=== PATIENT | male | born 1945 | race Caucasian/White ===

== ENCOUNTER 2020-06-22 08:31 | Outpatient (REF) | payer MEDICARE, OTHER, SELFPAY ==
[2020-06-22 10:04] LABS: MANUAL DIFF FLAG NO
[2020-06-22 10:19] LABS: Basophils Percent Auto 0.4 % (0-2); Eosinophils Absolute Auto 0.1 X10*3/uL (0.0-0.4); Eosinophils Percent Auto 1.3 % (0-4); Hematocrit 45.7 % (42-52); Hemoglobin 14.7 g/dl (14.0-18.0); Imm Gran Abs Auto 0.02 X10*3/uL (0.00-0.03); Imm Gran Pct Auto 0.3 % (0.0-0.4); Lymphocytes Absolute Auto 2.7 X10*3/uL (1.2-4.9); Lymphocytes Percent Auto 34.1 % (20-40); Mean Corpuscular HGB Conc 32.2 g/dl (31.0-36.0); Mean Corpuscular Hemoglobin 28.4 pg (27.0-33.0); Mean Corpuscular Volume 88.2 fL (80-98); Mean Platelet Volume 9.6 fL (9.4-12.4); Monocytes Absolute Auto 0.6 X10*3/uL (0.1-1.2); Monocytes Percent Auto 7.3 % (2-11); Neutrophils Absolute Auto 4.5 X10*3/uL (2.0-8.3); Neutrophils Percent Auto 56.6 % (45-73); Platelet Count 254 X10*3/uL (160-400); Red Blood Count 5.18 X10*6/uL (4.60-5.80); Red Cell Distribution Width 13.1 % (11.0-16.0); White Blood Count 7.9 X10*3/uL (4.8-10.8)
[2020-06-22 10:35] LABS: Glucose Urine UA NEG (NEG); Leukocyte Esterase Urine NEG (NEG); Nitrite Urine NEG (NEG); PH 5.5 (5.0-8.0); Specific Gravity - Urine >= 1.030 (1.005-1.025); Urine Blood 2+ (NEG); Urine Ketones NEG (NEG); Urine Protein NEG (NEG-TRACE)
[2020-06-22 10:36] LABS: Alanine Aminotransferase 43 U/L (0-40); Albumin Level 4.3 g/dL (3.5-5.0); Alkaline Phosphatase 119 U/L (39-117); Anion Gap 13 (12-20); Aspartate Amino Transferase 29 U/L (5-37); Bilirubin Total 0.3 mg/dL (0.0-1.0); Blood Urea Nitrogen 13 mg/dL (9-16); Calcium 8.6 mg/dL (8.4-10.2); Carbon Dioxide 25 mmol/L (22-29); Chloride 107 mmol/L (96-108); Estimated Glomerular Filt Rate > 60; Glucose Fasting 115 mg/dL (60-99); Potassium 4.2 mmol/l (3.3-5.1); Sodium 141 mmol/L (135-145); Total Protein 7.1 g/dL (6.5-8.0)
[2020-06-22 10:38] LABS: Triglycerides 131 mg/dL
[2020-06-22 10:40] LABS: Appearance Urine CLEAR; Color Urine YELLOW
[2020-06-22 10:42] LABS: Cholesterol 157 mg/dL; HDL Cholesterol 50 mg/dL; LDL Cholesterol Calculated 81 mg/dl
[2020-06-22 10:54] LABS: Mucus Urine 1+ /LPF; Squamous Epithelial Cell Urine TRACE /LPF; WBC Urine 0 /HPF (0-4)
[2020-06-22 10:55] LABS: TSH reflex Free T4 2.84 mIU/mL (0.32-4.0)
== END 2020-06-22 08:32 | disposition home or self-care (01) ==
LOC: HO.10HDL 08:31
PROVIDERS: Absent Provider Internal Medicine Interventional Cardiology; PCP Internal Medicine; Visit Provider Internal Medicine
DX: E78.5 Hyperlipidemia, unspecified (principal); R73.01 Impaired fasting glucose; I25.10 Atherosclerotic heart disease of native coronary artery without angina pectoris; N40.0 Benign prostatic hyperplasia without lower urinary tract symptoms; E66.3 Overweight
CPT/HCPCS: 36415; 80053; 80061; 81001; 84443; 85025

== ENCOUNTER 2020-11-10 08:11 | Outpatient (REF) | payer MEDICARE, OTHER, SELFPAY ==
[2020-11-10 11:51] LABS: PSA,Total (Free>4and<10) 38.21 ng/mL (0.00-4.00)
== END 2020-11-10 08:12 | disposition home or self-care (01) ==
LOC: HO.10HDL 08:11
PROVIDERS: Visit Provider Urology
DX: Z12.5 Encounter for screening for malignant neoplasm of prostate (principal); N13.8 Other obstructive and reflux uropathy; N40.1 Benign prostatic hyperplasia with lower urinary tract symptoms
CPT/HCPCS: 36415; 84153

== ENCOUNTER → 2020-11-16 13:14 | Outpatient (BNVA) | payer MEDICARE, OTHER, SELFPAY | PROVIDERS: PCP Internal Medicine; Visit Provider Urology | DX: N40.0 Benign prostatic hyperplasia without lower urinary tract symptoms (principal); R97.20 Elevated prostate specific antigen [PSA]; Z90.79 Acquired absence of other genital organ(s) | CPT/HCPCS: 81002; 99212 ==

== ENCOUNTER 2020-12-21 09:02 | Outpatient (REF) | payer MEDICARE, OTHER, SELFPAY ==
[2020-12-21 11:24] LABS: MANUAL DIFF FLAG NO
[2020-12-21 11:31] LABS: Glucose Urine UA NEG (NEG); Leukocyte Esterase Urine NEG (NEG); Nitrite Urine NEG (NEG); Specific Gravity - Urine >= 1.030 (1.005-1.025); Urine Blood TRACE (NEG); Urine Ketones NEG (NEG); Urine Protein 1+ MG/DL (NEG-TRACE)
[2020-12-21 11:33] LABS: Basophils Percent Auto 0.4 % (0-2); Eosinophils Absolute Auto 0.1 X10*3/uL (0.0-0.4); Eosinophils Percent Auto 0.9 % (0-4); Hematocrit 46.1 % (42-52); Hemoglobin 14.6 g/dl (14.0-18.0); Imm Gran Abs Auto 0.01 X10*3/uL (0.00-0.03); Imm Gran Pct Auto 0.1 % (0.0-0.4); Lymphocytes Absolute Auto 2.3 X10*3/uL (1.2-4.9); Lymphocytes Percent Auto 30.7 % (20-40); Mean Corpuscular HGB Conc 31.7 g/dl (31.0-36.0); Mean Corpuscular Hemoglobin 28.7 pg (27.0-33.0); Mean Corpuscular Volume 90.6 fL (80-98); Mean Platelet Volume 10.1 fL (9.4-12.4); Monocytes Absolute Auto 0.6 X10*3/uL (0.1-1.2); Monocytes Percent Auto 7.9 % (2-11); Neutrophils Absolute Auto 4.6 X10*3/uL (2.0-8.3); Platelet Count 256 X10*3/uL (160-400); Red Blood Count 5.09 X10*6/uL (4.60-5.80); Red Cell Distribution Width 12.6 % (11.0-16.0); White Blood Count 7.6 X10*3/uL (4.8-10.8)
[2020-12-21 11:34] LABS: Appearance Urine CLOUDY; Color Urine YELLOW
[2020-12-21 11:39] LABS: Estimated Average Glucose 114 mg/dL; Hemoglobin A1c % 5.6 %
[2020-12-21 12:10] LABS: TSH reflex Free T4 1.44 uIU/mL (0.32-4.0)
[2020-12-21 12:12] LABS: Alanine Aminotransferase 35 U/L (0-40); Albumin Level 4.4 g/dL (3.5-5.0); Alkaline Phosphatase 127 U/L (39-117); Anion Gap 14 (12-20); Aspartate Amino Transferase 30 U/L (5-37); Bilirubin Total 0.3 mg/dL (0.0-1.0); Blood Urea Nitrogen 12 mg/dL (9-16); Calcium 9.4 mg/dL (8.4-10.2); Carbon Dioxide 24 mmol/L (22-29); Chloride 107 mmol/L (96-108); Cholesterol 151 mg/dL; Estimated Glomerular Filt Rate > 60; Glucose Fasting 110 mg/dL (60-99); HDL Cholesterol 47 mg/dL; LDL Cholesterol Calculated 83 mg/dl; Potassium 4.3 mmol/L (3.3-5.1); RBC Urine 0-2 /HPF (0); Sodium 141 mmol/L (135-145); Triglycerides 108 mg/dL; WBC Urine 0-2 /HPF (0-4)
== END 2020-12-21 09:03 | disposition home or self-care (01) ==
LOC: HO.HMGCLDS 09:02
PROVIDERS: PCP Internal Medicine; Visit Provider Internal Medicine
DX: I25.10 Atherosclerotic heart disease of native coronary artery without angina pectoris (principal); E78.00 Pure hypercholesterolemia, unspecified; R73.01 Impaired fasting glucose; E66.3 Overweight
CPT/HCPCS: 36415; 80053; 80061; 81001; 83036; 84443; 85025

== ENCOUNTER → 2021-06-22 08:29 | Outpatient (BNVA) | payer MEDICARE, OTHER, SELFPAY | PROVIDERS: PCP Internal Medicine; Visit Provider Urology | DX: Z13.89 Encounter for screening for other disorder (principal) | CPT/HCPCS: Q3014 ==

== ENCOUNTER 2021-12-15 09:02 | Outpatient (REF) | payer MEDICARE, OTHER, SELFPAY ==
[2021-12-15 12:23] LABS: PSA,Total (Free>4and<10) 39.36 ng/mL (0.00-4.00)
== END 2021-12-15 09:03 | disposition home or self-care (01) ==
LOC: HO.HMGCLDS 09:02
PROVIDERS: PCP Internal Medicine; Visit Provider Urology
DX: N40.1 Benign prostatic hyperplasia with lower urinary tract symptoms (principal); N13.8 Other obstructive and reflux uropathy; R97.20 Elevated prostate specific antigen [PSA]; Z12.5 Encounter for screening for malignant neoplasm of prostate
CPT/HCPCS: 36415; 84153

== ENCOUNTER → 2021-12-26 11:18 | Outpatient (BNVA) | payer MEDICARE, OTHER, SELFPAY | PROVIDERS: PCP Internal Medicine; Visit Provider Urology | DX: R97.20 Elevated prostate specific antigen [PSA] (principal); N32.0 Bladder-neck obstruction | CPT/HCPCS: 99212 ==

== ENCOUNTER → 2022-02-15 08:53 | Outpatient (BNVA) | payer MEDICARE, OTHER, SELFPAY | PROVIDERS: PCP Internal Medicine; Visit Provider Urology | DX: N32.0 Bladder-neck obstruction (principal); R97.20 Elevated prostate specific antigen [PSA]; Z90.79 Acquired absence of other genital organ(s) | CPT/HCPCS: 51798; 99212 ==

== ENCOUNTER 2022-04-10 09:08 | Outpatient (REF) | payer MEDICARE, OTHER, SELFPAY ==
[2022-04-10 10:49] LABS: MANUAL DIFF FLAG NO
[2022-04-10 10:54] LABS: Basophils Percent Auto 0.5 % (0-2); Eosinophils Absolute Auto 0.1 X10*3/uL (0.0-0.4); Eosinophils Percent Auto 1.1 % (0-4); Hemoglobin 15.1 g/dl (14.0-18.0); Imm Gran Abs Auto 0.02 X10*3/uL (0.00-0.03); Imm Gran Pct Auto 0.3 % (0.0-0.4); Lymphocytes Absolute Auto 2.1 X10*3/uL (1.2-4.9); Mean Corpuscular HGB Conc 32.8 g/dl (31.0-36.0); Mean Corpuscular Volume 88.3 fL (80.0-98.0); Mean Platelet Volume 9.9 fL (9.4-12.4); Monocytes Absolute Auto 0.5 X10*3/uL (0.1-1.2); Neutrophils Absolute Auto 3.5 x10*3/uL (2.0-8.3); Neutrophils Percent Auto 56.1 % (45-73); Platelet Count 231 X10*3/uL (160-400); Red Blood Count 5.21 X10*6/uL (4.60-5.80); Red Cell Distribution Width 12.6 % (11.0-16.0); White Blood Count 6.3 X10*3/uL (4.8-10.8)
[2022-04-10 11:00] LABS: Appearance Urine Clear; Color Urine Yellow; Glucose Urine UA Negative (Negative); Leukocyte Esterase Urine Negative (Negative); Nitrite Urine Negative (Negative); Urine Blood Negative (Negative); Urine Ketones Negative (Negative); Urine Protein Trace mg/dL (Neg-Trace)
[2022-04-10 11:03] LABS: Estimated Average Glucose 114 mg/dL; Hemoglobin A1C 149.6728 umol/L; Hemoglobin A1c % 5.6 %
[2022-04-10 11:13] LABS: Alanine Aminotransferase 31 U/L (0-40); Albumin Level 4.6 g/dL (3.5-5.0); Alkaline Phosphatase 103 U/L (39-117); Anion Gap 16 (12-20); Aspartate Amino Transferase 23 U/L (5-37); Bilirubin Total 0.6 mg/dL (0.0-1.0); Blood Urea Nitrogen 14 mg/dL (9-16); Calcium 9.6 mg/dL (8.4-10.2); Carbon Dioxide 27 mmol/L (22-29); Chloride 103 mmol/L (96-108); Cholesterol 163 mg/dL; Estimated Glomerular Filt Rate > 60; Glucose Fasting 108 mg/dL (60-99); HDL Cholesterol 56 mg/dL; LDL Cholesterol Calculated 88 mg/dl; Sodium 141 mmol/L (135-145); Total Protein 7.3 g/dL (6.5-8.0); Triglycerides 98 mg/dL
[2022-04-10 11:26] LABS: TSH reflex Free T4 1.81 uIU/mL (0.32-4.0); Vitamin D 25-OH Total 25.4 ng/mL (>30)
== END 2022-04-10 09:09 | disposition home or self-care (01) ==
LOC: HO.10HDL 09:08
PROVIDERS: Visit Provider Internal Medicine
DX: R73.01 Impaired fasting glucose (principal); E55.9 Vitamin D deficiency, unspecified; I10 Essential (primary) hypertension; E78.00 Pure hypercholesterolemia, unspecified
CPT/HCPCS: 36415; 80053; 80061; 81003; 82306; 83036; 84443; 85025

== ENCOUNTER 2022-10-24 09:16 | Outpatient (REF) | payer MEDICARE, OTHER, SELFPAY ==
[2022-10-24 12:15] LABS: PSA,Total (Free>4and<10) 43.29 ng/mL (0.00-4.00)
== END 2022-10-24 09:17 | disposition home or self-care (01) ==
LOC: HO.10HDL 09:16
PROVIDERS: Visit Provider Urology
DX: N40.1 Benign prostatic hyperplasia with lower urinary tract symptoms (principal); N13.8 Other obstructive and reflux uropathy; R97.20 Elevated prostate specific antigen [PSA]; Z12.5 Encounter for screening for malignant neoplasm of prostate
CPT/HCPCS: 36415; 84153

== ENCOUNTER → 2022-11-01 10:39 | Outpatient (BNVA) | payer MEDICARE, OTHER, SELFPAY | PROVIDERS: PCP Internal Medicine; Visit Provider Urology | DX: N32.0 Bladder-neck obstruction (principal); N40.1 Benign prostatic hyperplasia with lower urinary tract symptoms; N13.8 Other obstructive and reflux uropathy; R97.20 Elevated prostate specific antigen [PSA]; Z79.82 Long term (current) use of aspirin; Z79.899 Other long term (current) drug therapy | CPT/HCPCS: 99212 ==

== ENCOUNTER 2022-11-05 11:14 | Outpatient (REF) | payer MEDICARE, OTHER, SELFPAY ==
[2022-11-05 14:13] LABS: Appearance Urine Turbid; Color Urine Yellow; Glucose Urine UA Negative (Negative); Leukocyte Esterase Urine Negative (Negative); Nitrite Urine Negative (Negative); PH 5.5 (5.0-9.0); Specific Gravity - Urine 1.025 (1.005-1.025); Urine Blood Negative (Negative); Urine Ketones Trace mg/dL (Negative); Urine Protein Trace mg/dL (Neg-Trace)
[2022-11-05 14:17] LABS: MANUAL DIFF FLAG NO
[2022-11-05 14:31] LABS: Basophils Percent Auto 0.5 % (0-2); Eosinophils Absolute Auto 0.1 X10*3/uL (0.0-0.4); Eosinophils Percent Auto 0.7 % (0-4); Hematocrit 47.1 % (42.0-52.0); Hemoglobin 15.1 g/dl (14.0-18.0); Imm Gran Abs Auto 0.03 X10*3/uL (0.00-0.03); Imm Gran Pct Auto 0.4 % (0.0-0.4); Lymphocytes Absolute Auto 2.3 X10*3/uL (1.2-4.9); Lymphocytes Percent Auto 29.9 % (20-40); Mean Corpuscular HGB Conc 32.1 g/dl (31.0-36.0); Mean Corpuscular Volume 90.4 fL (80.0-98.0); Mean Platelet Volume 9.7 fL (9.4-12.4); Monocytes Absolute Auto 0.6 X10*3/uL (0.1-1.2); Neutrophils Absolute Auto 4.6 x10*3/uL (2.0-8.3); Neutrophils Percent Auto 60.5 % (45-73); Platelet Count 255 X10*3/uL (160-400); Red Blood Count 5.21 X10*6/uL (4.60-5.80); White Blood Count 7.6 X10*3/uL (4.8-10.8)
[2022-11-05 15:14] LABS: Alanine Aminotransferase 35 U/L (0-40); Albumin Level 4.4 g/dL (3.5-5.0); Alkaline Phosphatase 103 U/L (39-117); Anion Gap 16 (12-20); Aspartate Amino Transferase 30 U/L (5-37); Bilirubin Total 0.7 mg/dL (0.0-1.0); Blood Urea Nitrogen 13 mg/dL (9-16); Calcium 9.3 mg/dL (8.4-10.2); Carbon Dioxide 24 mmol/L (22-29); Chloride 104 mmol/L (96-108); Cholesterol 172 mg/dL; Estimated Glomerular Filt Rate > 60; Glucose Fasting 95 mg/dL (60-99); HDL Cholesterol 56 mg/dL; LDL Cholesterol Calculated 97 mg/dl; Potassium 5.1 mmol/L (3.3-5.1); Sodium 139 mmol/L (135-145); Total Protein 7.2 g/dL (6.5-8.0); Triglycerides 98 mg/dL
[2022-11-05 15:26] LABS: TSH reflex Free T4 1.98 uIU/mL (0.32-4.0); Vitamin D 25-OH Total 41.9 ng/mL (>30)
== END 2022-11-05 11:15 | disposition home or self-care (01) ==
LOC: HO.10HDL 11:14
PROVIDERS: Visit Provider Internal Medicine
DX: E55.9 Vitamin D deficiency, unspecified (principal); R30.0 Dysuria; E78.00 Pure hypercholesterolemia, unspecified; I10 Essential (primary) hypertension
CPT/HCPCS: 36415; 80053; 80061; 81003; 82306; 84443; 85025

== ENCOUNTER 2023-04-26 08:06 | Outpatient (REF) | payer MEDICARE, OTHER, SELFPAY ==
[2023-04-26 11:47] LABS: Appearance Urine Clear; Color Urine Yellow; Glucose Urine UA Negative (Negative); Leukocyte Esterase Urine Negative (Negative); Nitrite Urine Negative (Negative); Urine Blood Negative (Negative); Urine Ketones Negative (Negative); Urine Protein Negative (Neg-Trace)
[2023-04-26 11:54] LABS: MANUAL DIFF FLAG NO
[2023-04-26 12:04] LABS: Basophils Percent Auto 0.5 % (0-2); Eosinophils Absolute Auto 0.1 X10*3/uL (0.0-0.4); Eosinophils Percent Auto 1.4 % (0-4); Imm Gran Abs Auto 0.02 X10*3/uL (0.00-0.03); Imm Gran Pct Auto 0.3 % (0.0-0.4); Lymphocytes Absolute Auto 2.4 X10*3/uL (1.2-4.9); Lymphocytes Percent Auto 39.3 % (20-40); Mean Corpuscular HGB Conc 31.9 g/dl (31.0-36.0); Mean Corpuscular Hemoglobin 28.4 pg (27.0-33.0); Mean Corpuscular Volume 88.8 fL (80.0-98.0); Mean Platelet Volume 9.9 fL (9.4-12.4); Monocytes Absolute Auto 0.5 X10*3/uL (0.1-1.2); Monocytes Percent Auto 8.7 % (2-11); Neutrophils Absolute Auto 3.1 x10*3/uL (2.0-8.3); Neutrophils Percent Auto 49.8 % (45-73); Platelet Count 272 X10*3/uL (160-400); Red Blood Count 5.29 X10*6/uL (4.60-5.80); Red Cell Distribution Width 13.1 % (11.0-16.0); White Blood Count 6.2 X10*3/uL (4.8-10.8)
[2023-04-26 13:23] LABS: Prostate Specific Antigen 48.99 ng/mL (<0.05-4.0)
[2023-04-26 13:35] LABS: Alanine Aminotransferase 34 U/L (0-40); Albumin Level 4.4 g/dL (3.5-5.0); Alkaline Phosphatase 98 U/L (39-117); Anion Gap 18 (12-20); Aspartate Amino Transferase 26 U/L (5-37); Bilirubin Total 0.6 mg/dL (0.0-1.0); Blood Urea Nitrogen 12 mg/dL (9-16); Calcium 9.9 mg/dL (8.4-10.2); Carbon Dioxide 24 mmol/L (22-29); Chloride 103 mmol/L (96-108); Cholesterol 166 mg/dL (<200); Estimated Glomerular Filt Rate > 60; Glucose Fasting 88 mg/dL (60-99); HDL Cholesterol 47 mg/dL (>40); LDL Cholesterol Calculated 90 mg/dL (<100); Potassium 3.8 mmol/L (3.3-5.1); Sodium 141 mmol/L (135-145); Total Protein 7.6 g/dL (6.5-8.0); Triglycerides 148 mg/dL (<150); Vitamin D 25-OH Total 37.7 ng/mL (>30)
== END 2023-04-26 08:07 | disposition home or self-care (01) ==
LOC: HO.HMGCLDS 08:06
PROVIDERS: Absent Provider Urology; PCP Internal Medicine; Visit Provider Internal Medicine
DX: I10 Essential (primary) hypertension (principal); E78.00 Pure hypercholesterolemia, unspecified; R30.0 Dysuria; E55.9 Vitamin D deficiency, unspecified; R97.20 Elevated prostate specific antigen [PSA]; Z12.5 Encounter for screening for malignant neoplasm of prostate
CPT/HCPCS: 36415; 80053; 80061; 81003; 82306; 84153; 84443; 85025

== ENCOUNTER 2023-05-03 09:39 | Outpatient (AMB) | payer MEDICARE, OTHER, SELFPAY ==
--- NOTE | 2023-05-03 09:39 | A.OFFVIS_ITS ---
Intake Intake Visit Reasons: 6M PSA(set) Intake Note: Patient is Present for Telephone Follow Up PSA Urology Med: Finasteride Antibiotic Allergy: None Blood Thinner: Aspirin Pharamcy: well care Allergies No Known Allergies Allergy (Verified 05/03/23 09:40) Medication List - Last Reconciled 05/03/23 by Cesar Murphy MD amlodipine 2.5 mg PO DAILY aspirin 81 mg PO DAILY atenolol 50 mg PO DAILY atorvastatin 40 mg PO BEDTIME 90 days coenzyme Q10 300 mg PO DAILY docusate sodium 100 mg PO DAILY PRN ezetimibe (Zetia) 10 mg PO DAILY 90 days finasteride 5 mg PO DAILY 90 days meloxicam 15 mg PO DAILY metronidazole 0.75% appl topical nitroglycerin 0.4 mg sublingual Q5M PRN HPI HPI Comments History of Present Illness Details Jayesh is a pleasant male. He is a patient of Dr. Childers. He is seen for the following urologic issues. 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 110 g pro state. 1 cm equivocal posterolateral area. No areas of moderate or high suspicion Understands the risks and benefits with potential delay in diagnosis prostate cancer Lower urinary tract symptoms Prior laser to the prostate Has very large prostate on RUSS PSA surveillance [facility] Medical History Obesity (BMI 30-39.9) Benign essential hypertension Overweight (BMI 25.0-29.9) Benign prostatic hyperplasia Impaired fasting glucose Pure hypercholesterolemia Coronary artery disease Surgical History Presence of bare metal stent in right coronary artery S/P transurethral resection of prostate History of inguinal hernia repair Family History Father CVD (cardiovascular disease) Myocardial infarction Mother Myocardial infarction Sister Myocardial infarction Sister Cancer Social History Housing: House Alcohol intake: current Alcohol intake frequency: 0-2 drinks per day Patient Tobacco Use Status: Former Tobacco user (1996) e-Cigarette/Vaping Use: Never Used Second Hand Smoke Exposure: No service: No Current occupational status: retired Cognitive needs: No Hearing needs: Yes (hearing aide) Vision needs: Yes (glasse) Review of Systems Const All systems reviewed & are unremarkable except as noted in HPI and below Reports no additional complaints Resp Reports no additional complaints GI Reports no additional complaints Reports as per HPI Musc Reports no additional complaints Physical Exam Telemedicine evaluation Appropriate responses Regular breathing rate and rhythm HEENT Head: Yes normal to inspection Ears: hearing grossly normal bilaterally Eyes General: appearance normal, both eyes and all related structures Neck Neck: Yes normal visual inspection Chest Chest palpation & inspection: normal inspection of the chest Resp Effort & Inspection: normal respiratory effort and able to speak in complete sentences Assessment & Plan Assessment & Plan (1) Bladder outlet obstruction: Comment: 2008 prostate procedure vaportrode Code(s): N32.0 - Bladder-neck obstruction (2) Elevated PSA: Code(s): R97.20 - Elevated prostate specific antigen [PSA] Plan Six month follow-up prostate MRI Orders: Orders Prostate Specific Antigen 04/26/23 R97.20 - Elevated prostate specific antigen [PSA] Creatinine 6 Months R97.20 - Elevated prostate specific antigen [PSA] Blood Urea Nitrogen 6 Months R97.20 - Elevated prostate specific antigen [PSA] MR pelvis wo/w con 6 Months R97.20 - Elevated prostate specific antigen [PSA] PSA,Total (Free>4and<10) 6 Months R97.20 - Elevated prostate specific antigen [PSA] Patient Instructions: Imaging studies, laboratory and physical exam results were discussed and reviewed in detail. No major barriers to patient understanding were identified. An opportunity to ask questions regarding the treatment plan was provided. All questions were answered. The patient expressed understanding and agreement with the above treatment plan. The patient is aware they should contact our office by phone for worsening of their current condition or the appearance of new urologic symptoms. Compliance is encouraged with any medications and followup testing that is ordered. It is a privilege to participate in the urologic care of your patient. If you have any questions or concerns regarding treatment for the above conditions, or other urologic issues, please do not hesitate to contact me. The office telephone contact is [phone]. This note is constructed using voice recognition software. While every effort has been made to ensure accuracy endoscopy registered nurse errors may have been included. Yours sincerely, Dr Cesar Murphy MD, [facility] - Urology Providers of Expert, Compassionate Care for the Genitourinary System Telehealth Telehealth Location of provider rendering services: practice address Location of patient: address on file Patient Identification confirmed using: Name, : Yes Telehealth method: voice only Patient verbally consented to treatment: Yes Patient verbally consented to billing insurance company: Yes Patient informed of any privacy concerns related to visit: Yes Coding Level of Care Code Tele Est Pt Level 3 (99055) Diagnoses Bladder outlet obstruction N32.0 Elevated PSA R97.20
== END 2023-05-03 10:29 | disposition home or self-care (01) ==
LOC: HO.HUSH 09:39
PROVIDERS: PCP Internal Medicine; Visit Provider Urology
DX: N32.0 Bladder-neck obstruction (principal); R97.20 Elevated prostate specific antigen [PSA]
CPT/HCPCS: 99442

== ENCOUNTER → 2023-05-03 09:39 | Outpatient (BNVA) | payer MEDICARE, OTHER, SELFPAY | PROVIDERS: PCP Internal Medicine; Visit Provider Urology | DX: R97.20 Elevated prostate specific antigen [PSA] (principal) ==

== ENCOUNTER 2023-05-27 13:21 | Outpatient (AMB) | payer MEDICARE, OTHER, SELFPAY ==
[2023-05-27 13:25] VITALS: BP 128/72; PULSE 56; O2SAT 96; BMI 30.4
--- NOTE | 2023-05-27 13:25 | MHC.PC.OV ---
Vital Signs 05/27/23 13:25 Height 5 ft 5 in Weight 182 lb 8 oz BMI 30.4 BP 128/72 Blood Pressure Location Lt brachial Position Sitting Pulse 56 Pulse Source Pulse Oximeter Pulse Oximetry (%) 96 Oxygen Delivery Method Room Air Intake Visit Reasons: hyperlipidemia, HTN Assistant Commissioner Required: No Accompanied by: Self / Same As Patient Allergies No Known Allergies Allergy (Verified 05/27/23 14:03) Medication List - Last Reconciled 05/27/23 by Gómez Childers MD amlodipine 2.5 mg PO DAILY aspirin 81 mg PO DAILY atenolol 50 mg PO DAILY atorvastatin 40 mg PO BEDTIME 90 days coenzyme Q10 300 mg PO DAILY docusate sodium 100 mg PO DAILY PRN ezetimibe (Zetia) 10 mg PO DAILY 90 days finasteride 5 mg PO DAILY 90 days meloxicam 15 mg PO DAILY metronidazole 0.75% appl topical nitroglycerin 0.4 mg sublingual Q5M PRN Tobacco use date assessed: 05/27/23 Fall risk assessment: No Falls in past year Last assessed Fall Risk: 05/27/23 Dental Screening Dental Screen Date: 05/27/23 Did you have a dental visit in the last 12 months?: Yes Did you have a dental problem in the last 6 months where you did not have access to dental care?: No Was dental information given to patient?: Patient has dentist HPI hyperlipidemia, HTN HPI Details Patient comes in today for his follow up visit States that he feels okay He denies any headaches or dizziness Denies any chest pains, no SOB No nausea/vomiting, no abdominal pain No change in bowel habits noted Adds that he's had a couple of incidents wherein his joint swells up (toe, right knee) over the past few months and thinks that he may have gout - currently does not have any joint pains or swelling Had his follow up labs done a couple of weeks ago - to discuss his results States that he just got back from [place] and will be heading back down there next month and will not be back until sometime in October 2023 [facility] Medical History Obesity (BMI 30-39.9) Benign essential hypertension Overweight (BMI 25.0-29.9) Benign prostatic hyperplasia Impaired fasting glucose Pure hypercholesterolemia Coronary artery disease Surgical History Presence of bare metal stent in right coronary artery S/P transurethral resection of prostate History of inguinal hernia repair Family History Father CVD (cardiovascular disease) Myocardial infarction Mother Myocardial infarction Sister Myocardial infarction Sister Cancer Social History Housing: House Alcohol intake: current Alcohol intake frequency: 0-2 drinks per day Patient Tobacco Use Status: Former Tobacco user (1996) e-Cigarette/Vaping Use: Never Used Second Hand Smoke Exposure: No service: No Current occupational status: retired Cognitive needs: No Hearing needs: Yes (hearing aide) Vision needs: Yes (glasse) Questionnaire PHQ-9 Over the last 2 weeks, how often have you been bothered by any of the following problems? 1. Little interest or pleasure in doing things: not at all 2. Feeling down, depressed, or hopeless: not at all 3. Trouble falling or staying asleep, or sleeping too much: not at all 4. Feeling tired or having little energy: not at all 5. Poor appetite or overeating: not at all 6. Feeling bad about yourself - or that you are a failure or have let yourself or your family down: not at all 7. Trouble concentrating on things, such as reading the newspaper or watching television: not at all 8. Moving or speaking so slowly that other people could have noticed. Or the opposite - being so fidgety or restless that you have been moving around a lot more than usual: not at all 9. Thoughts that you would be better off or of hurting yourself in some way: not at all Total score: 0 Depression Screening Interpretation: Negative Depression Screening Done: Yes 43473 - PHQ-9 Billing: Yes Source: Developed by Drs. Marek Cao, Rosanna Brown, Kevin Sy and colleagues, with an educational julia from [employer]. Thrive Questionnaire Date Thrive assessed: 05/27/23 I am a: Patient What is your living situation today?: I have a steady place to live Within the past 12 months, did the food you bought not last and you didn't have the money to get more?: Never true Within the past 12 months, did you worry whether your food would run out before you got money to buy more?: Never true Do you have trouble paying for medicines?: No Do you have trouble getting transportation to medical appointments?: No Do you have trouble paying your heating and electricity bill?: No Do you have trouble taking care of your child, family member or friend?: No Do you have trouble with day-to-day activities such as bathing, preparing meals, shopping, managing finances, etc.?: No Are you currently unemployed and looking for a job?: No Are you interested in more education?: No Please select the resources that you would like help with: None Currently or been in a relationship where the following occur: no concerns reported AUDIT C Alcohol Use Questionnaire (AUDIT-C) 1. How often do you have a drink containing alcohol?: 4 or more times a week 2. How many drinks containing alcohol do you have on a typical day when you are drinking?: 1 or 2 Total Score: 4 Score Reviewed/Action Taken: Yes SHERRIE-7 AMB Questionnaire SHERRIE-7 Date SHERRIE - 7 assessed: 05/27/23 Feeling nervous, anxious, or on edge: 0 = Not at all Not being able to stop or control worryin = Not at all Worrying too much about different things: 0 = Not at all Trouble relaxin = Not at all Being so restless that it is hard to sit still: 0 = Not at all Becoming easily annoyed or irritable: 0 = Not at all Feeling afraid as if something awful might happen: 0 = Not at all Total SHERRIE-7 score (0-4 normal; 5-9 mild; 10-14 moderate; 15-21 severe): 0 Source: Developed by Drs. Marek Cao, Rosanna Brown, Kevin Sy and colleagues, with an educational julia from [employer]. Review of Systems Const Denies chills, Denies fatigue, Denies fever(s) and Denies headache(s) ENT Denies dysphagia, Denies dizziness, Denies otalgia, Denies headache(s), Denies neck pain, Denies odynophagia and Denies sore throat Card Denies chest pain, Denies palpitations and Denies dyspnea Resp Denies cough and Denies dyspnea GI Denies abdominal pain, Denies constipation, Denies dysphagia, Denies heartburn, Denies diarrhea, Denies nausea, Denies odynophagia and Denies vomiting Denies dysuria, Denies nocturia and Denies urinary frequency Musc Denies back pain and Denies neck pain Skin/Breast Denies rash Neuro Denies dizziness and Denies headache(s) Endo Denies fatigue and Denies palpitations Physical exam (Primary Care) Vital Signs: Last Vital Signs Pulse 56 05/27/23 13:25 BP 128/72 05/27/23 13:25 Pulse Ox 96 05/27/23 13:25 Oxygen Delivery Method Room Air 05/27/23 13:25 BMI result Body Mass Index 30.4 Tobacco/Smoking Status: Tobacco use Status Tobacco use date assessed 05/27/23 05/27/23 13:27 Patient Tobacco Use Status Former Tobacco user (1996) 05/27/23 13:27 e-Cigarette/Vaping Use Never Used 05/27/23 13:27 PHQ-9: PHQ-9 Score PHQ-9: Total score 0 05/27/23 13:28 Depression Screening Interpretation: Negative Thrive Assessment: Date of Thrive Assessment Date Thrive assessed 05/27/23 05/27/23 13:28 Currently or been in a relationship where the following occur: no concerns reported Const General: no acute distress and alert HENMT Ears: TM's normal bilaterally and EAC's normal Throat: Yes posterior oropharynx normal and Yes tonsils normal (no TP congestion) Neck Neck: Yes no lymphadenopathy and Yes supple Resp Auscultation: clear to auscultation bilaterally, no rales and no wheezes Cardio Rate: regular rate Rhythm: regular rhythm Heart sounds: no murmurs GI Palpation (GI): Soft to palpation and nontender Auscultation: normal bowel sounds General: Yes no CVA tenderness Back/Spine/Pelvis Back: no CVA tenderness Thoracic/Lumbar Spine: thoracic and lumbar spine normal to inspection Skin Rashes: no rashes Extrem General: Yes no clubbing, cyanosis or edema Results Reviewed Results Reviewed: Laboratory Tests 04/26/23 04/26/23 04/26/23 08:15 08:15 08:20 WBC 6.2 Hgb 15.0 Hct 47.0 Plt Count 272 Sodium 141 Potassium 3.8 D Creatinine 0.84 Estimated GFR > 60 Fasting Glucose 88 Calcium 9.9 D AST 26 ALT 34 Albumin 4.4 Triglycerides 148 Cholesterol 166 LDL Cholesterol, Calc 90 HDL Cholesterol 47 Prostate Specific Ag 48.99 H 25-OH Vitamin D Total 37.7 TSH 2.70 Ur Specific Perry 1.020 Urine Protein Negative Urine Glucose (UA) Negative Urine Blood 04/26/23 08:20 WBC Hgb Hct Plt Count Sodium Potassium Creatinine Estimated GFR Fasting Glucose Calcium AST ALT Albumin Triglycerides Cholesterol LDL Cholesterol, Calc HDL Cholesterol Prostate Specific Ag 25-OH Vitamin D Total TSH Ur Specific Perry Urine Protein Urine Glucose (UA) Urine Blood Negative Assessment and Plan Assessment & Plan (1) Coronary artery disease: Comment: S/P bare metal stenting of the LAD, Cx and right coronary artery (RCA) on 08/09/1997 Code(s): I25.10 - Atherosclerotic heart disease of [place] coronary artery without angina pectoris Qualifiers: Coronary Disease-Associated Artery/Lesion type: [place] artery [place] vs. transplanted heart: [place] heart Associated angina: without angina Qualified Code(s): I25.10 - Atherosclerotic heart disease of [place] coronary artery without angina pectoris Plan: Patient remains asymptomatic Continue Aspirin 81 mg QD (needs lifelong antiplatelet Tx) and Atenolol 50 mg QD Follow up with cardiology (Dr. Graham) as scheduled (2) Benign essential hypertension: Code(s): I10 - Essential (primary) hypertension Plan: Reinforced low sodium diet - goal is systolic BP of at least 130 mm or less Continue Atenolol 50 mg QD and Amlodipine 2.5 mg QD (3) Pure hypercholesterolemia: Code(s): E78.00 - Pure hypercholesterolemia, unspecified Plan: Results of his labs done a couple of weeks ago reviewed and discussed with patient Reinforced low cholesterol diet Continue Atorvastatin 40 mg QD Will recheck his labs and fasting lipids in 6 months for follow up (4) Impaired fasting glucose: Code(s): R73.01 - Impaired fasting glucose Plan: HgbA1c was normal at 5.6% when last checked; his FBS was normal at 88 mg/dl on his recent labs Reinforced low calorie diet/exercise as tolerated (5) Joint pain: Code(s): M25.50 - Pain in unspecified joint Qualifiers: Joint pain location: unspecified Qualified Code(s): M25.50 - Pain in unspecified joint Plan: Patient reports that he's had on and off joint pains and swelling over the past few months (toe, right knee) and thinks that he may have gout; states that symptoms resolve with NSAID Rx - was prescribed Meloxicam from the walk-in clinic a few months ago Reinforced low purine diet Will check his serum uric acid level in 6 months for follow up (6) Benign prostatic hyperplasia: Code(s): N40.0 - Benign prostatic hyperplasia without lower urinary tract symptoms Qualifiers: Lower urinary tract symptom presence: unspecified whether lower urinary tract symptoms present Qualified Code(s): N40.0 - Benign prostatic hyperplasia without lower urinary tract symptoms Plan: S/P TURP in 2008 PSA was still significantly elevated on his labs done a couple of weeks ago Pelvic MRI done (as an alternative by urology) in May 2021 showed (+) signal abnormality that is equivocal for prostate cancer He has declined further biopsies and work ups with urology Continue Finasteride 5 mg QD Follow up with urology (Dr. Murphy) as scheduled (7) Obesity (BMI 30-39.9): Code(s): E66.9 - Obesity, unspecified Plan: Reinforced diet/exercise as tolerated/lose weight Plan Follow up in 6 months Orders: Orders Complete Blood Count Auto Diff 6 Months I10 - Essential (primary) hypertension TSH reflex Free T4 6 Months E78.00 - Pure hypercholesterolemia, unspecified Vitamin D 25-OH Total 6 Months E55.9 - Vitamin D deficiency, unspecified Hemoglobin A1c 6 Months R73.01 - Impaired fasting glucose Comprehensive [place]. Panel Fast 6 Months E78.00 - Pure hypercholesterolemia, unspecified Lipid Panel 6 Months E78.00 - Pure hypercholesterolemia, unspecified UA CC w/rflx Micro + Cult 6 Months R30.0 - Dysuria Uric Acid 6 Months M10.9 - Gout, unspecified Coding Level of Care Code Est Pt Level 4 (07176) Diagnoses Coronary artery disease involving [place] coronary artery of [place] heart without angina pectoris I25.10 Coronary Disease-Associated Artery/Lesion type: [place] artery [place] vs. transplanted heart: [place] heart Associated angina: without angina Benign essential hypertension I10 Pure hypercholesterolemia E78.00 Impaired fasting glucose R73.01 Arthralgia, unspecified joint M25.50 Joint pain location: unspecified Benign prostatic hyperplasia, unspecified whether lower urinary tract symptoms present N40.0 Lower urinary tract symptom presence: unspecified whether lower urinary tract symptoms present Obesity (BMI 30-39.9) E66.9
== END 2023-05-27 14:18 | disposition home or self-care (01) ==
PROVIDERS: PCP Internal Medicine; Visit Provider Internal Medicine
DX: I25.10 Atherosclerotic heart disease of native coronary artery without angina pectoris (principal); I10 Essential (primary) hypertension; E78.00 Pure hypercholesterolemia, unspecified; R73.01 Impaired fasting glucose; M25.50 Pain in unspecified joint; N40.0 Benign prostatic hyperplasia without lower urinary tract symptoms; E66.9 Obesity, unspecified; Z68.30 Body mass index [BMI] 30.0-30.9, adult
CPT/HCPCS: 99214

== ENCOUNTER 2024-01-21 08:28 | Outpatient (REF) | payer MEDICARE, OTHER, SELFPAY ==
[2024-01-21 10:10] LABS: MANUAL DIFF FLAG NO
[2024-01-21 10:24] LABS: Basophils Percent Auto 0.6 % (0-2); Eosinophils Absolute Auto 0.1 X10*3/uL (0.0-0.4); Eosinophils Percent Auto 1.4 % (0-4); Hemoglobin 14.1 g/dl (14.0-18.0); Imm Gran Abs Auto 0.01 X10*3/uL (0.00-0.03); Imm Gran Pct Auto 0.1 % (0.0-0.4); Lymphocytes Absolute Auto 2.3 X10*3/uL (1.2-4.9); Lymphocytes Percent Auto 32.7 % (20-40); Mean Corpuscular HGB Conc 31.3 g/dl (31.0-36.0); Mean Corpuscular Volume 89.5 fL (80.0-98.0); Mean Platelet Volume 9.8 fL (9.4-12.4); Monocytes Absolute Auto 0.5 X10*3/uL (0.1-1.2); Monocytes Percent Auto 7.4 % (2-11); Neutrophils Absolute Auto 4.1 x10*3/uL (2.0-8.3); Neutrophils Percent Auto 57.8 % (45-73); Platelet Count 215 X10*3/uL (160-400); Red Blood Count 5.03 X10*6/uL (4.60-5.80); Red Cell Distribution Width 13.2 % (11.0-16.0); White Blood Count 7.2 X10*3/uL (4.8-10.8)
[2024-01-21 10:32] LABS: Estimated Average Glucose 114 mg/dL; Hemoglobin A1c % 5.6 % (<6.0)
[2024-01-21 11:15] LABS: Alanine Aminotransferase 42 U/L (0-40); Albumin Level 4.3 g/dL (3.5-5.0); Alkaline Phosphatase 125 U/L (39-117); Anion Gap 15 (12-20); Aspartate Amino Transferase 28 U/L (5-37); Bilirubin Total 0.5 mg/dL (0.0-1.0); Blood Urea Nitrogen 14 mg/dL (9-16); Calcium 9.7 mg/dL (8.4-10.2); Carbon Dioxide 27 mmol/L (22-29); Chloride 105 mmol/L (96-108); Cholesterol 146 mg/dL (<200); Estimated Glomerular Filt Rate > 60; Glucose Fasting 118 mg/dL (60-99); HDL Cholesterol 49 mg/dL (>40); LDL Cholesterol Calculated 79 mg/dL (<100); Potassium 4.7 mmol/L (3.3-5.1); Sodium 142 mmol/L (135-145); Total Protein 7.4 g/dL (6.5-8.0); Triglycerides 94 mg/dL (<150); Vitamin D 25-OH Total 43.6 ng/mL (>30)
[2024-01-21 11:33] LABS: PSA,Total (Free>4and<10) 46.83 ng/mL (0.00-4.00)
[2024-01-21 13:12] LABS: Appearance Urine Turbid; Color Urine Yellow; Glucose Urine UA Negative (Negative); Leukocyte Esterase Urine Negative (Negative); Nitrite Urine Negative (Negative); PH 5.5 (5.0-9.0); Specific Gravity - Urine >= 1.030 (1.005-1.025); Urine Blood Negative (Negative); Urine Ketones Negative (Negative); Urine Protein Negative (Neg-Trace)
== END 2024-01-21 08:29 | disposition home or self-care (01) ==
LOC: HO.HMGCLDS 08:28
PROVIDERS: PCP Internal Medicine; Referring Provider Urology; Visit Provider Internal Medicine
DX: E55.9 Vitamin D deficiency, unspecified (principal); R30.0 Dysuria; I10 Essential (primary) hypertension; E78.00 Pure hypercholesterolemia, unspecified; R73.01 Impaired fasting glucose; M10.9 Gout, unspecified; R97.20 Elevated prostate specific antigen [PSA]; Z12.5 Encounter for screening for malignant neoplasm of prostate
CPT/HCPCS: 36415; 80053; 80061; 81003; 82306; 83036; 84153; 84443; 84550; 85025

== ENCOUNTER 2024-02-04 09:54 | Outpatient (AMB) | payer MEDICARE, OTHER, SELFPAY ==
--- NOTE | 2024-02-04 09:58 | A.OFFVIS_ITS ---
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 He is a patient of Dr. Childers. He is seen for the following urologic issues. - lower urinary tract symptoms - elevated PSA PSA remains elevated He understands the risk of prostate cancer PSA has continued gradual movement since 2020 At 78 he says he is not too concerned RUSS large prostate without nodularity Continue to follow every 6 months Main issue is waking up at night to urinate. 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 110 g prostate. 1 cm equivocal posterolateral area. No areas of moderate or high suspicion Understands the risks and benefits with potential delay in diagnosis prostate cancer Lower urinary tract symptoms Prior laser to the prostate Has very large prostate on RUSS PSA surveillance [facility] Medical History Obesity (BMI 30-39.9) Benign essential hypertension Overweight (BMI 25.0-29.9) Benign prostatic hyperplasia Impaired fasting glucose Pure hypercholesterolemia Coronary artery disease Surgical History Presence of bare metal stent in right coronary artery S/P transurethral resection of prostate History of inguinal hernia repair Family History Father CVD (cardiovascular disease) Myocardial infarction Mother Myocardial infarction Sister Myocardial infarction Sister Cancer Social History Housing: House Alcohol intake: current Alcohol intake frequency: 0-2 drinks per day Patient Tobacco Use Status: Former Tobacco user (1996) e-Cigarette/Vaping Use: Never Used Second Hand Smoke Exposure: No service: No Current occupational status: retired Cognitive needs: No Hearing needs: Yes (hearing aide) Vision needs: Yes (glasse) Review of Systems Const Denies chills and Denies fever(s) Card Reports no additional complaints and Denies syncope Resp Denies cough GI Denies abdominal pain and Denies heartburn Reports as per HPI and Denies change in libido Neuro Denies syncope Psych Denies change in libido Endo Denies change in libido Physical Exam Const General: cooperative, healthy appearing, comfortable and no acute distress Orientation/consciousness: patient oriented x3 HEENT Face and sinus: Yes normal facial exam Mouth: moist mucous membranes Neck Neck: Yes normal visual inspection, Yes full ROM and Yes trachea midline Chest Chest palpation & inspection: normal inspection of the chest Resp Effort & Inspection: normal respiratory effort, able to speak in complete sentences and no respiratory distress GI Inspection: Yes normal to inspection Back/Spine/Pelvis Cervical Spine: normal cervical lordosis Thoracic/Lumbar Spine: thoracic and lumbar spine normal to inspection Skin General skin exam: no rashes or lesions noted Neuro General: patient oriented x3, gait normal, tone normal and moves all extremities Extrem General: Yes normal to inspection and Yes capillary refill normal Assessment & Plan Assessment & Plan (1) Bladder outlet obstruction: Comment: 2008 prostate procedure vaportrode Code(s): N32.0 - Bladder-neck obstruction Category: Medical Plan Continue to follow PSA every 6 months Orders: Orders PSA,Total (Free>4and<10) 6 Months R97.20 - Elevated prostate specific antigen [PSA] Patient Instructions: Imaging studies, laboratory and physical exam results were discussed and reviewed in detail. No major barriers to patient understanding were identified. An opportunity to ask questions regarding the treatment plan was provided. All questions were answered. The patient expressed understanding and agreement with the above treatment plan. The patient is aware they should contact our office by phone for worsening of their current condition or the appearance of new urologic symptoms. Compliance is encouraged with any medications and followup testing that is ordered. It is a privilege to participate in the urologic care of your patient. If you have any questions or concerns regarding treatment for the above conditions, or other urologic issues, please do not hesitate to contact me. The office telephone contact is [phone]. This note is constructed using voice recognition software. While every effort has been made to ensure accuracy patient service associate errors may have been included. Yours sincerely, Dr Cesar Murphy MD, [facility] - Urology Providers of Expert, Compassionate Care for the Genitourinary System Coding Level of Care Code Est Pt Level 3 (23511) Diagnoses Bladder outlet obstruction N32.0
== END 2024-02-04 10:58 | disposition home or self-care (01) ==
PROVIDERS: PCP Internal Medicine; Visit Provider Urology
DX: N32.0 Bladder-neck obstruction (principal)
CPT/HCPCS: 99213

== ENCOUNTER → 2024-02-04 09:54 | Outpatient (BNVA) | payer MEDICARE, OTHER, SELFPAY | PROVIDERS: PCP Internal Medicine; Visit Provider Urology | DX: N32.0 Bladder-neck obstruction (principal); R35.0 Frequency of micturition; R97.20 Elevated prostate specific antigen [PSA]; Z79.899 Other long term (current) drug therapy | CPT/HCPCS: 99212 ==

== ENCOUNTER 2024-02-18 15:26 | Outpatient (AMB) | payer MEDICARE, OTHER, SELFPAY ==
--- NOTE | 2024-02-18 15:39 | MHC.PC.OV ---
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: No Accompanied by: Self / Same As Patient Allergies No Known Allergies Allergy (Verified 02/18/24 15:51) Medication List - Last Reconciled 02/18/24 by Gómez Childers MD amlodipine 2.5 mg PO DAILY aspirin 81 mg PO DAILY atenolol 50 mg PO DAILY atorvastatin 40 mg PO BEDTIME 90 days coenzyme Q10 300 mg PO DAILY docusate sodium 100 mg PO DAILY PRN ezetimibe (Zetia) 10 mg PO DAILY 90 days finasteride 5 mg PO DAILY 90 days meloxicam 15 mg PO DAILY metronidazole 0.75% appl topical nitroglycerin 0.4 mg sublingual Q5M PRN Tobacco use date assessed: 02/18/24 Fall risk assessment: No Falls in past year Last assessed Fall Risk: 02/18/24 Dental Screening Dental Screen Date: 02/18/24 Did you have a dental visit in the last 12 months?: Yes Did you have a dental problem in the last 6 months where you did not have access to dental care?: No Was dental information given to patient?: Patient has dentist HPI HTN,hyperlipidemia,IFG,CAD HPI Details Patient comes in today for his follow up visit States that he feels okay He denies any headaches or dizziness Denies any chest pains, no SOB No nausea/vomiting, no abdominal pain No change in bowel habits noted He had his follow up labs done last month - to discuss his results [facility] Medical History Obesity (BMI 30-39.9) Benign essential hypertension Overweight (BMI 25.0-29.9) Benign prostatic hyperplasia Impaired fasting glucose Pure hypercholesterolemia Coronary artery disease Surgical History Presence of bare metal stent in right coronary artery S/P transurethral resection of prostate History of inguinal hernia repair Family History Father CVD (cardiovascular disease) Myocardial infarction Mother Myocardial infarction Sister Myocardial infarction Sister Cancer Social History Housing: House Alcohol intake: current Alcohol intake frequency: 0-2 drinks per day Patient Tobacco Use Status: Former Tobacco user (1996) e-Cigarette/Vaping Use: Never Used Second Hand Smoke Exposure: No service: No Current occupational status: retired Cognitive needs: No Hearing needs: Yes (hearing aide) Vision needs: Yes (glasse) Questionnaire PHQ-9 Over the last 2 weeks, how often have you been bothered by any of the following problems? 1. Little interest or pleasure in doing things: not at all 2. Feeling down, depressed, or hopeless: not at all 3. Trouble falling or staying asleep, or sleeping too much: not at all 4. Feeling tired or having little energy: not at all 5. Poor appetite or overeating: not at all 6. Feeling bad about yourself - or that you are a failure or have let yourself or your family down: not at all 7. Trouble concentrating on things, such as reading the newspaper or watching television: not at all 8. Moving or speaking so slowly that other people could have noticed. Or the opposite - being so fidgety or restless that you have been moving around a lot more than usual: not at all 9. Thoughts that you would be better off or of hurting yourself in some way: not at all Total score: 0 Depression Screening Interpretation: Negative Depression Screening Done: Yes 87885 - PHQ-9 Billing: Yes Source: Developed by Drs. Marek Cao, Rosanna Brown, Kevin Sy and colleagues, with an educational julia from [employer]. Thrive Questionnaire Date Thrive assessed: 02/18/24 I am a: Patient What is your living situation today?: I have a steady place to live Within the past 12 months, did the food you bought not last and you didn't have the money to get more?: Never true Within the past 12 months, did you worry whether your food would run out before you got money to buy more?: Never true Do you have trouble paying for medicines?: No Do you have trouble getting transportation to medical appointments?: No Do you have trouble paying your heating and electricity bill?: No Do you have trouble taking care of your child, family member or friend?: No Do you have trouble with day-to-day activities such as bathing, preparing meals, shopping, managing finances, etc.?: No Are you currently unemployed and looking for a job?: No Are you interested in more education?: No Please select the resources that you would like help with: None Currently or been in a relationship where the following occur: No concerns reported THRIVE Score: 0 AUDIT C Alcohol Use Questionnaire (AUDIT-C) 1. How often do you have a drink containing alcohol?: 4 or more times a week 2. How many drinks containing alcohol do you have on a typical day when you are drinking?: 1 or 2 3. How often do you have six or more drinks on one occasion?: Never Total Score: 4 Score Reviewed/Action Taken: Yes SHERRIE-7 AMB Questionnaire SHERRIE-7 Date SHERRIE - 7 assessed: 02/18/24 Feeling nervous, anxious, or on edge: 0 = Not at all Not being able to stop or control worryin = Not at all Worrying too much about different things: 0 = Not at all Trouble relaxin = Not at all Being so restless that it is hard to sit still: 0 = Not at all Becoming easily annoyed or irritable: 0 = Not at all Feeling afraid as if something awful might happen: 0 = Not at all Total SHERRIE-7 score (0-4 normal; 5-9 mild; 10-14 moderate; 15-21 severe): 0 Source: Developed by Drs. Marek Cao, Rosanna Brown, Kevin Sy and colleagues, with an educational julia from [employer]. SHERRIE-7 Assessment Billing SHERRIE-7 Assessment Tool: SHERRIE-7 Assessment 27401 Review of Systems Const Denies chills, Denies fatigue, Denies fever(s) and Denies headache(s) ENT Denies dysphagia, Denies dizziness, Denies otalgia, Denies headache(s), Denies neck pain, Denies odynophagia and Denies sore throat Card Denies chest pain, Denies palpitations and Denies dyspnea Resp Denies cough and Denies dyspnea GI Denies abdominal pain, Denies constipation, Denies dysphagia, Denies heartburn, Denies diarrhea, Denies nausea, Denies odynophagia and Denies vomiting Denies dysuria, Denies nocturia and Denies urinary frequency Musc Denies back pain and Denies neck pain Skin/Breast Denies rash Neuro Denies dizziness and Denies headache(s) Endo Denies fatigue and Denies palpitations Physical exam (Primary Care) Vital Signs: Last Vital Signs Pulse 72 02/18/24 15:45 BP 114/70 02/18/24 15:45 Pulse Ox 96 02/18/24 15:45 Oxygen Delivery Method Room Air 02/18/24 15:45 BMI result Body Mass Index 30.4 Tobacco/Smoking Status: Tobacco use Status Tobacco use date assessed 02/18/24 02/18/24 15:46 Patient Tobacco Use Status Former Tobacco user (1996) 02/18/24 15:40 e-Cigarette/Vaping Use Never Used 02/18/24 15:40 PHQ-9: PHQ-9 Score PHQ-9: Total score 0 02/18/24 15:40 Depression Screening Interpretation: Negative Thrive Assessment: Date of Thrive Assessment Date Thrive assessed 02/18/24 02/18/24 15:40 Currently or been in a relationship where the following occur: No concerns reported Const General: no acute distress and alert HENMT Ears: TM's normal bilaterally and EAC's normal Throat: Yes posterior oropharynx normal and Yes tonsils normal (no TP congestion) Neck Neck: Yes no lymphadenopathy and Yes supple Thyroid: Thyroid normal Resp Auscultation: clear to auscultation bilaterally, no rales and no wheezes Cardio Rate: regular rate Rhythm: regular rhythm Heart sounds: no murmurs GI Palpation (GI): Soft to palpation and nontender Auscultation: normal bowel sounds General: Yes no CVA tenderness Back/Spine/Pelvis Back: no CVA tenderness Thoracic/Lumbar Spine: No lumbar spinal tenderness Skin Rashes: no rashes Extrem General: Yes no clubbing, cyanosis or edema Results Reviewed Results Reviewed: Laboratory Tests 01/21/24 09:11 WBC 7.2 Hgb 14.1 Hct 45.0 Plt Count 215 Sodium 142 Potassium 4.7 Creatinine 0.76 Estimated GFR > 60 Fasting Glucose 118 H Hemoglobin A1c % 5.6 Uric Acid 8.0 H Calcium 9.7 AST 28 ALT 42 H Triglycerides 94 Cholesterol 146 LDL Cholesterol, Calc 79 HDL Cholesterol 49 Total PSA 46.83 H 25-OH Vitamin D Total 43.6 TSH 1.20 Ur Specific [place] >= 1.030 H Urine Protein Negative Urine Glucose (UA) Negative Urine Blood Negative Urine Nitrite Negative Ur Leukocyte Esterase Negative Assessment and Plan Assessment & Plan (1) Coronary artery disease: Comment: S/P bare metal stenting of the LAD, Cx and right coronary artery (RCA) on 08/09/1997 Code(s): I25.10 - Atherosclerotic heart disease of [place] coronary artery without angina pectoris Qualifiers: Coronary Disease-Associated Artery/Lesion type: [place] artery [place] vs. transplanted heart: [place] heart Associated angina: without angina Qualified Code(s): I25.10 - Atherosclerotic heart disease of [place] coronary artery without angina pectoris Plan: Patient remains asymptomatic from cardiac standpoint Continue Aspirin 81 mg QD (needs lifelong antiplatelet Tx) and Atenolol 50 mg QD Follow up with cardiology (Dr. Graham) as scheduled (2) Benign essential hypertension: Code(s): I10 - Essential (primary) hypertension Plan: Reinforced low sodium diet - goal is systolic BP of at least 130 mm or less Continue Atenolol 50 mg QD and Amlodipine 2.5 mg QD (3) Pure hypercholesterolemia: Code(s): E78.00 - Pure hypercholesterolemia, unspecified Plan: Results of his labs done last month reviewed and discussed with patient Reinforced low cholesterol diet Continue Atorvastatin 40 mg QD Will recheck his labs and fasting lipids in June 2024 for follow up (4) Impaired fasting glucose: Code(s): R73.01 - Impaired fasting glucose Plan: HgbA1c remained normal at 5.6% when last checked about a month ago; his FBS was up at 118 mg/dl on his recent labs Reinforced low calorie diet/exercise as tolerated (5) Joint pain: Code(s): M25.50 - Pain in unspecified joint Qualifiers: Joint pain location: unspecified Qualified Code(s): M25.50 - Pain in unspecified joint Plan: Have advised patient that his serum uric acid level on his labs done last month was elevated at 8.0 Patient previously reported experiencing on and off joint pains and swelling (involving his toe, right knee) and was concerned that he may have gout, which he likely had with the elevated uric acid level on his labs His symptoms resolve with NSAID Rx that was prescribed (Meloxicam) from the walk-in clinic last year Patient states that he has since been drinking some schulte juice everyday (recommended by his sister) and he has NOT had any further flare ups since - have advised patient that cherries are known to help decrease the chance of gout attacks, reduce disease severity and lower uric acid and schulte juice would theoretically work the same way Reinforced low purine diet Will recheck his serum uric acid level in 4 months for follow up (6) Benign prostatic hyperplasia: Code(s): N40.0 - Benign prostatic hyperplasia without lower urinary tract symptoms Qualifiers: Lower urinary tract symptom presence: unspecified whether lower urinary tract symptoms present Qualified Code(s): N40.0 - Benign prostatic hyperplasia without lower urinary tract symptoms Plan: S/P TURP in 2008 PSA was still significantly elevated on his labs done last month Pelvic MRI done (as an alternative by urology) in May 2021 showed (+) signal abnormality that is equivocal for prostate cancer He has declined further biopsies and work ups with urology Continue Finasteride 5 mg QD Follow up with urology (Dr. Murphy) as scheduled (7) Obesity (BMI 30-39.9): Code(s): E66.9 - Obesity, unspecified Plan: Reinforced diet/exercise as tolerated/lose weight Plan Follow up in 4 months (June 2024) - per patient request Orders: Orders Comprehensive [place]. Panel Fast 4 Months E78.00 - Pure hypercholesterolemia, unspecified Lipid Panel 4 Months E78.00 - Pure hypercholesterolemia, unspecified UA CC w/rflx Micro + Cult 4 Months R30.0 - Dysuria Uric Acid 4 Months M10.9 - Gout, unspecified Hemoglobin A1c 4 Months R73.01 - Impaired fasting glucose Complete Blood Count Auto Diff 4 Months D64.9 - Anemia, unspecified TSH reflex Free T4 4 Months E78.00 - Pure hypercholesterolemia, unspecified Coding Level of Care Code Est Pt Level 4 (29697) Complex EM visit Add On G2211 Diagnoses Coronary artery disease involving navajo coronary artery of [place] heart without angina pectoris I25.10 Coronary Disease-Associated Artery/Lesion type: [place] artery [place] vs. transplanted heart: [place] heart Associated angina: without angina Benign essential hypertension I10 Pure hypercholesterolemia E78.00 Impaired fasting glucose R73.01 Arthralgia, unspecified joint M25.50 Joint pain location: unspecified Benign prostatic hyperplasia, unspecified whether lower urinary tract symptoms present N40.0 Lower urinary tract symptom presence: unspecified whether lower urinary tract symptoms present Obesity (BMI 30-39.9) E66.9 Additional Codes SHERRIE-7 Assessment Billing - SHERRIE-7 Assessment Tool: SHERRIE-7 Assessment [id number] ([id number])
[2024-02-18 15:45] VITALS: BP 114/70; PULSE 72; O2SAT 96; BMI 30.4
== END 2024-02-18 16:11 | disposition home or self-care (01) ==
PROVIDERS: PCP Internal Medicine; Visit Provider Internal Medicine
DX: I25.10 Atherosclerotic heart disease of native coronary artery without angina pectoris (principal); I10 Essential (primary) hypertension; E78.00 Pure hypercholesterolemia, unspecified; R73.01 Impaired fasting glucose; M25.50 Pain in unspecified joint; N40.0 Benign prostatic hyperplasia without lower urinary tract symptoms; E66.9 Obesity, unspecified
CPT/HCPCS: 99214; G2211

== ENCOUNTER 2024-06-23 08:19 | Outpatient (REF) | payer MEDICARE, OTHER, SELFPAY ==
[2024-06-23 10:18] LABS: MANUAL DIFF FLAG NO
[2024-06-23 10:30] LABS: Basophils Percent Auto 0.4 % (0-2); Eosinophils Absolute Auto 0.1 X10*3/uL (0.0-0.4); Eosinophils Percent Auto 1.2 % (0-4); Hematocrit 44.3 % (42.0-52.0); Hemoglobin 14.7 g/dl (14.0-18.0); Imm Gran Abs Auto 0.03 X10*3/uL (0.00-0.03); Imm Gran Pct Auto 0.4 % (0.0-0.4); Lymphocytes Absolute Auto 2.4 X10*3/uL (1.2-4.9); Lymphocytes Percent Auto 33.3 % (20-40); Mean Corpuscular HGB Conc 33.2 g/dl (31.0-36.0); Mean Corpuscular Hemoglobin 28.7 pg (27.0-33.0); Mean Corpuscular Volume 86.5 fL (80.0-98.0); Mean Platelet Volume 9.7 fL (9.4-12.4); Monocytes Absolute Auto 0.5 X10*3/uL (0.1-1.2); Monocytes Percent Auto 7.3 % (2-11); Neutrophils Absolute Auto 4.2 x10*3/uL (2.0-8.3); Neutrophils Percent Auto 57.4 % (45-73); Platelet Count 286 X10*3/uL (160-400); Red Blood Count 5.12 X10*6/uL (4.60-5.80); Red Cell Distribution Width 12.6 % (11.0-16.0); White Blood Count 7.3 X10*3/uL (4.8-10.8)
[2024-06-23 10:43] LABS: Appearance Urine Turbid; Color Urine Dark Yellow; Glucose Urine UA Negative (Negative); Leukocyte Esterase Urine Trace (Negative); Nitrite Urine Negative (Negative); PH 5.5 (5.0-9.0); Specific Gravity - Urine 1.025 (1.005-1.025); UMIC TRIGGER UACC YES; Urine Blood Negative (Negative); Urine Ketones Trace mg/dL (Negative); Urine Protein 30 (1+) mg/dL (Neg-Trace)
[2024-06-23 10:53] LABS: Estimated Average Glucose 120 mg/dL; Hemoglobin A1C 146.8379 umol/L; Hemoglobin A1c % 5.8 % (<6.0); Total Hemoglobin (HGBA1C) 3646.3912 umol/L
[2024-06-23 10:55] LABS: Bacteria Urine None Seen (None Seen); RBC Urine 0-2 /HPF (0-2); WBC Urine 0-5 /HPF (0-5)
[2024-06-23 11:02] LABS: Alanine Aminotransferase 40 U/L (0-40); Albumin Level 4.1 g/dL (3.5-5.0); Alkaline Phosphatase 89 U/L (39-117); Anion Gap 16 (12-20); Aspartate Amino Transferase 29 U/L (5-37); Bilirubin Total 0.6 mg/dL (0.0-1.0); Blood Urea Nitrogen 13 mg/dL (9-16); Calcium 9.4 mg/dL (8.4-10.2); Carbon Dioxide 26 mmol/L (22-29); Chloride 102 mmol/L (96-108); Cholesterol 138 mg/dL (<200); Estimated Glomerular Filt Rate > 60; Glucose Fasting 101 mg/dL (60-99); HDL Cholesterol 41 mg/dL (>40); LDL Cholesterol Calculated 73 mg/dL (<100); Potassium 3.9 mmol/L (3.3-5.1); Sodium 140 mmol/L (135-145); Total Protein 7.3 g/dL (6.5-8.0); Triglycerides 124 mg/dL (<150); Uric Acid 7.7 mg/dL (3.4-7.0)
== END 2024-06-23 08:20 | disposition home or self-care (01) ==
LOC: HO.HMGCLDS 08:19
PROVIDERS: PCP Internal Medicine; Referring Provider Urology; Visit Provider Internal Medicine
DX: E78.00 Pure hypercholesterolemia, unspecified (principal); M10.9 Gout, unspecified; R73.01 Impaired fasting glucose; D64.9 Anemia, unspecified
CPT/HCPCS: 36415; 80053; 80061; 81001; 83036; 84443; 84550; 85025

== ENCOUNTER 2024-07-01 09:48 | Outpatient (AMB) | payer MEDICARE, OTHER, SELFPAY ==
[2024-07-01 09:51] VITALS: BP 136/68; PULSE 68; O2SAT 95
--- NOTE | 2024-07-01 09:51 | MHC.PC.OV ---
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 Accompanied by: Self / Same As Patient Allergies No Known Allergies Allergy (Verified 07/01/24 10:09) Medication List - Last Reconciled 07/01/24 by Gómez Childers MD amlodipine 2.5 mg PO DAILY aspirin 81 mg PO DAILY atenolol 50 mg PO DAILY atorvastatin 40 mg PO BEDTIME 90 days coenzyme Q10 300 mg PO DAILY docusate sodium 100 mg PO DAILY PRN ezetimibe (Zetia) 10 mg PO DAILY 90 days finasteride 5 mg PO DAILY 90 days meloxicam 15 mg PO DAILY metronidazole 0.75% appl topical nitroglycerin 0.4 mg sublingual Q5M PRN Tobacco use date assessed: 02/18/24 Fall risk assessment: No Falls in past year Last assessed Fall Risk: 07/01/24 Dental Screening Dental Screen Date: 02/18/24 HPI HTN, hyperlipidemia, BPH HPI Details Patient comes in today for his follow up visit States that he's had increased nasal and sinus congestion and on and off coughing for the past 3 weeks now He has been taking some OTC Coricidin lately with some relief of his symptoms He denies any fever or sore throat; denies any headaches or dizziness Denies any chest pains, no increased SOB but reports still (+) on and off coughing - states that he coughs up thick whitish to yellowish phlegm at times No nausea/vomiting, no abdominal pain No change in bowel habits noted He had his follow up labs done last week - to discuss his results Would like to get 3 copies of his lab results to bring with him when he goes down to [place] for the winter in a couple of weeks for his specialists [place] ([facility], [facility]) - he is leaving for [place] [facility] Medical History (Updated 07/01/24 @ 10:43 by Gómez Childers MD) Macular degeneration, wet Obesity (BMI 30-39.9) Benign essential hypertension Benign prostatic hyperplasia Impaired fasting glucose Pure hypercholesterolemia Coronary artery disease Surgical History Presence of bare metal stent in right coronary artery S/P transurethral resection of prostate History of inguinal hernia repair Family History Father CVD (cardiovascular disease) Myocardial infarction Mother Myocardial infarction Sister Myocardial infarction Sister Cancer Social History Housing: House Alcohol intake: current Alcohol intake frequency: 0-2 drinks per day Patient Tobacco Use Status: Former Tobacco user (1996) e-Cigarette/Vaping Use: Never Used Second Hand Smoke Exposure: No service: No Current occupational status: retired Cognitive needs: No Hearing needs: Yes (hearing aide) Vision needs: Yes (glasse) Questionnaire PHQ-9 Over the last 2 weeks, how often have you been bothered by any of the following problems? Depression Screening Interpretation: Negative Depression Screening Done: Yes Source: Developed by Drs. Marek Cao, Rosanna Brown, Kevin Sy and colleagues, with an educational julia from [employer]. Thrive Questionnaire Date Thrive assessed: 02/18/24 Currently or been in a relationship where the following occur: No concerns reported THRIVE Score: 0 SHERRIE-7 AMB Questionnaire SHERRIE-7 Date SHERRIE - 7 assessed: 02/18/24 Source: Developed by Drs. Marek Cao, Rosanna Brown, Kevin Sy and colleagues, with an educational julia from [employer]. Review of Systems Const Denies chills, Denies fatigue, Denies fever(s) and Denies headache(s) ENT Denies dysphagia, Denies dizziness, Denies otalgia, Denies headache(s), Reports nasal congestion (on and off), Denies neck pain, Denies odynophagia, Denies sinus pain and Denies sore throat Card Denies chest pain, Denies palpitations and Denies dyspnea Resp Reports chest congestion (mild), Reports cough (on and off - coughs up thick whitish to yellowish phlegm at times), Denies dyspnea and Denies wheezing GI Denies abdominal pain, Denies constipation, Denies dysphagia, Denies heartburn, Denies diarrhea, Denies nausea, Denies odynophagia and Denies vomiting Denies dysuria, Denies nocturia and Denies urinary frequency Musc Denies back pain and Denies neck pain Skin/Breast Denies rash Neuro Denies dizziness and Denies headache(s) Endo Denies fatigue and Denies palpitations Aller/Immun Denies wheezing Physical exam (Primary Care) Vital Signs: Last Vital Signs Pulse 68 07/01/24 09:51 BP 136/68 07/01/24 09:51 Pulse Ox 95 07/01/24 09:51 Oxygen Delivery Method Room Air 07/01/24 09:51 BMI result Body Mass Index 30.0 Tobacco/Smoking Status: Tobacco use Status Tobacco use date assessed 02/18/24 07/01/24 09:54 Patient Tobacco Use Status Former Tobacco user (1996) 07/01/24 09:54 e-Cigarette/Vaping Use Never Used 07/01/24 09:54 Depression Screening Interpretation: Negative Thrive Assessment: Date of Thrive Assessment Date Thrive assessed 02/18/24 07/01/24 09:54 Currently or been in a relationship where the following occur: No concerns reported Const General: no acute distress and alert HENMT Ears: TM's normal bilaterally and EAC's normal Throat: Yes posterior oropharynx normal and Yes tonsils normal (no TP congestion) Neck Neck: Yes supple and No lymphadenopathy Thyroid: Thyroid normal Resp Auscultation: clear to auscultation bilaterally, no rales, no wheezes and diminished lung sounds (slightly) bilateral Cardio Rate: regular rate Rhythm: regular rhythm Heart sounds: no murmurs GI Palpation (GI): Soft to palpation and nontender Auscultation: normal bowel sounds General: Yes no CVA tenderness Back/Spine/Pelvis Back: no CVA tenderness Thoracic/Lumbar Spine: No lumbar spinal tenderness Skin Rashes: no rashes Extrem General: Yes no clubbing, cyanosis or edema Results Reviewed Results Reviewed: Laboratory Tests 06/23/24 06/23/24 08:40 08:45 WBC 7.3 Hgb 14.7 Hct 44.3 Plt Count 286 D Sodium 140 Potassium 3.9 Creatinine 0.85 Estimated GFR > 60 Fasting Glucose 101 H Hemoglobin A1c % 5.8 Uric Acid 7.7 H Calcium 9.4 AST 29 ALT 40 Triglycerides 124 Cholesterol 138 LDL Cholesterol, Calc 73 HDL Cholesterol 41 TSH 2.50 Ur Specific Macy 1.025 Urine Protein 30 (1+) H Urine Glucose (UA) Negative Urine Blood Negative Urine Nitrite Negative Ur Leukocyte Esterase Trace H Coding Level of Care Code Est Pt Level 4 (25743) Diagnoses Coronary artery disease involving [place] coronary artery of [place] heart without angina pectoris I25.10 Coronary Disease-Associated Artery/Lesion type: [place] artery [place] vs. transplanted heart: [place] heart Associated angina: without angina Pure hypercholesterolemia E78.00 Benign essential hypertension I10 Impaired fasting glucose R73.01 Arthralgia, unspecified joint M25.50 Joint pain location: unspecified Benign prostatic hyperplasia, unspecified whether lower urinary tract symptoms present N40.0 Lower urinary tract symptom presence: unspecified whether lower urinary tract symptoms present Upper respiratory tract infection, unspecified type J06.9 URI type: unspecified URI Exudative age-related macular degeneration, unspecified laterality, unspecified stage H35.3290 Exudative macular degeneration stage: unspecified stage Eye laterality: unspecified Obesity (BMI 30-39.9) E66.9 Assessment & Plan Assessment & Plan (1) Coronary artery disease: Comment: S/P bare metal stenting of the LAD, Cx and right coronary artery (RCA) on 08/09/1997 Code(s): I25.10 - Atherosclerotic heart disease of [place] coronary artery without angina pectoris Category: Medical Qualifiers: Coronary Disease-Associated Artery/Lesion type: [place] artery [place] vs. transplanted heart: [place] heart Associated angina: without angina Qualified Code(s): I25.10 - Atherosclerotic heart disease of [place] coronary artery without angina pectoris Plan: Patient remains asymptomatic from a cardiac standpoint Continue Aspirin 81 mg QD (needs lifelong antiplatelet Tx) and Atenolol 50 mg QD Follow up with cardiology (Dr. Graham) as scheduled (2) Pure hypercholesterolemia: Code(s): E78.00 - Pure hypercholesterolemia, unspecified Category: Medical Plan: Results of his labs done last week reviewed and discussed with patient - copies of his provided to patient, per request Reinforced low cholesterol diet Continue Atorvastatin 40 mg QD Will recheck his labs and fasting lipids in 6 months for follow up (3) Benign essential hypertension: Code(s): I10 - Essential (primary) hypertension Category: Medical Plan: Reinforced low sodium diet - goal is systolic BP of at least 130 mm or less Continue Atenolol 50 mg QD and Amlodipine 2.5 mg QD (4) Impaired fasting glucose: Code(s): R73.01 - Impaired fasting glucose Category: Medical Plan: His HgbA1c was normal at 5.8% on his labs done last week (was previously at 5.6% a few months ago); his FBS was at 101 mg/dl on his recent labs Reinforced low calorie diet/exercise as tolerated (5) Joint pain: Code(s): M25.50 - Pain in unspecified joint Category: Medical Qualifiers: Joint pain location: unspecified Qualified Code(s): M25.50 - Pain in unspecified joint Plan: Have advised patient that his serum uric acid level on his labs done last week was still elevated at 7.7 (was at 8.0 previously) States that his previous joint pains and swelling (involving his toe, right knee) have all resolved with Meloxicam that he was prescribed from the walk-in clinic some time ago Patient states that he has since been drinking some schulte juice everyday (recommended by his sister) and he has NOT had any further flare ups since Reinforced low purine diet Will recheck his serum uric acid level in 6 months for follow up (6) Benign prostatic hyperplasia: Code(s): N40.0 - Benign prostatic hyperplasia without lower urinary tract symptoms Category: Medical Qualifiers: Lower urinary tract symptom presence: unspecified whether lower urinary tract symptoms present Qualified Code(s): N40.0 - Benign prostatic hyperplasia without lower urinary tract symptoms Plan: S/P TURP in 2008 His PSA was still significantly elevated on his labs done a few months ago Pelvic MRI done (as an alternative by urology) in May 2021 showed (+) signal abnormality that is equivocal for prostate cancer He has declined further biopsies and work ups with urology Continue Finasteride 5 mg QD Follow up with urology (Dr. Murphy) as scheduled (7) Upper respiratory tract infection: Code(s): J06.9 - Acute upper respiratory infection, unspecified Category: Medical Qualifiers: URI type: unspecified URI Qualified Code(s): J06.9 - Acute upper respiratory infection, unspecified Plan: Patient feels that his symptoms are gradually improving and will continue taking OTC Coricidin PRN for symptomatic relief Have advised patient to call if he still does not feel any better in a week's time compared to how he is feeling now OR if his symptoms get worse over the next week Will then start him empirically on Abx (probably Azithromycin) to get him cleared up before his annual trip down to [place] at the end of the month Advised him that if I do not hear from him next week, then I will assume he is feeling much better and no further Tx will be needed then (8) Macular degeneration, wet: Code(s): H35.3290 - Exudative age-related macular degeneration, unspecified eye, stage unspecified Category: Medical Qualifiers: Exudative macular degeneration stage: unspecified stage Eye laterality: unspecified Qualified Code(s): H35.3290 - Exudative age-related macular degeneration, unspecified eye, stage unspecified Plan: Follow up with ophthalmology as scheduled - states that he has an appointment scheduled tomorrow morning (9) Obesity (BMI 30-39.9): Code(s): E66.9 - Obesity, unspecified Category: Medical Plan: Reinforced diet/exercise as tolerated/lose weight Plan Follow up in 6 months Orders: Orders Complete Blood Count Auto Diff 6 Months D64.9 - Anemia, unspecified Lipid Panel 6 Months E78.00 - Pure hypercholesterolemia, unspecified TSH reflex Free T4 6 Months E78.00 - Pure hypercholesterolemia, unspecified UA CC w/rflx Micro + Cult 6 Months R30.0 - Dysuria Vitamin D 25-OH Total 6 Months E55.9 - Vitamin D deficiency, unspecified Vitamin B12 and Folate 6 Months E53.8 - Deficiency of other specified B group vitamins Uric Acid 6 Months M10.9 - Gout, unspecified Comprehensive Lynn. Panel Fast 6 Months E78.00 - Pure hypercholesterolemia, unspecified Hemoglobin A1c 6 Months R73.01 - Impaired fasting glucose
== END 2024-07-01 10:26 | disposition home or self-care (01) ==
PROVIDERS: PCP Internal Medicine; Visit Provider Internal Medicine
DX: I25.10 Atherosclerotic heart disease of native coronary artery without angina pectoris (principal); H35.3290 Exudative age-related macular degeneration, unspecified eye, stage unspecified; E66.9 Obesity, unspecified; Z68.30 Body mass index [BMI] 30.0-30.9, adult; E78.00 Pure hypercholesterolemia, unspecified; I10 Essential (primary) hypertension; R73.01 Impaired fasting glucose; M25.50 Pain in unspecified joint; N40.0 Benign prostatic hyperplasia without lower urinary tract symptoms; J06.9 Acute upper respiratory infection, unspecified

== ENCOUNTER → 2024-07-01 09:48 | Outpatient (BNVA) | payer MEDICARE, OTHER, SELFPAY | PROVIDERS: PCP Internal Medicine; Visit Provider Internal Medicine | DX: I25.10 Atherosclerotic heart disease of native coronary artery without angina pectoris (principal); E78.00 Pure hypercholesterolemia, unspecified; I10 Essential (primary) hypertension; R73.01 Impaired fasting glucose; M25.50 Pain in unspecified joint; N40.0 Benign prostatic hyperplasia without lower urinary tract symptoms; J06.9 Acute upper respiratory infection, unspecified; E66.9 Obesity, unspecified; Z68.30 Body mass index [BMI] 30.0-30.9, adult; H35.3290 Exudative age-related macular degeneration, unspecified eye, stage unspecified | CPT/HCPCS: 99212 ==

== ENCOUNTER 2025-01-13 08:54 | Outpatient (AMB) | payer MEDICARE, OTHER, SELFPAY ==
--- OUTSIDE RECORDS SUMMARY | 2023-12-12 05:40 | XMS_ITS ---
Author Organization [employer] [place] Address [address] [place], [place] [id number] Care Team Providers Care Roll Off Driver Name Role Phone FAISAL BAXTER Primary Care Provider REASON FOR VISIT 2 MONTH F/U Encounters Encounter Location Date Provider Diagnosis [facility] [address] [place], [place] [id number] 12/12/2023 FAISAL BAXTER Plan Of Treatment Next Appt Details Provider Name:FAISAL BAXTER, 07/28/2025 10:20:00 AM, [address], [place], [place], [phone], Progress Notes * SHIPLEYJONES EVANS EDOB:1945 (79 yo M)Acc No.[id number]:12/12/2023 Progress Notes Patient: Justine WATTSNATHAN JONES Janice Provider: Juliana Baxter MD :1945 A ge:78 Y S ex:Male Date:12/12/2023 Address:[address] [place] [address] [address], [id number] Subjective: * Chief Complaints: * 1 . 2 MONTH F/U. * Medical History: Objective: * Vitals: Assessment: Plan: * Treatment: * Preventive Medicine: QUALITY: H ROB Measures Screening: N o falls in the past year Date of last completed Functional Status Assessment: 0 08/08/2023 Functional Status N o impairment of functional status Date of last Pain Assessment: 0 10/16/2023 Date of last Medication Review: 0 10/16/2023 Date of last Advance Care Planning:?08/08/2023 Last done Colonoscopy A ged out of measure Last done FOBT A ged out of measure Mini Mental Exam (MMSE) 0 08/08/2023 PHQ9 0 08/08/2023 * Billing Information: * Visit Code: * Procedure Codes: * Electronic signature of EMMETT BAXTER MD on 01/13/2025 at 09:03 AM EDT Sign off status: Pending * Provider: Juliana Baxter MD Date: 0 12/12/2023 Generated for Sloan barbosa/Oc/Monicaitting on: 0 01/13/2025 09:03 AM EDT
--- OUTSIDE RECORDS SUMMARY | 2025-01-13 09:03 | XMS_ITS | Patient Health Record ---
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 for 1 day(s) 12/03/2018 Active Atenolol 50 MG 1 tablet Orally Once a day for 30 day(s) Active Aspir-81 81 MG 1 tablet Orally Once a day for 30 day(s) Active Finasteride 5 MG 1 tablet Orally Once a day for 30 day(s) Active CoQ10 100 MG 3 capsule with a julianne l Orally Once a day Active Immunizations Vaccine Route Administration Date Status Comme nts Influenza Unknown 03/19/2018 Administered Social History Tobacco Use: Social History Observation Description Date Details (start date - stop date) Former Smoker NA - NA Tobacco Use/Smoking Question Answer Notes Patient is a former smoker How long has it been since you last smoked? > 10 years Alcohol Screen Question Answer Notes Did you have a drink contain ing alcohol in the past year? Yes How often did you have a dri nk containing alcohol in the past year? 4 or more times a week (4 points) How many drinks did you have on a typical day when you were drinking in the past year? 1 or 2 drinks (0 point) How often did you have 6 or more drinks on one occasion in the past year? Never (0 point) Points 4 Interpretation Positive Problems Problem Type SNOMED Code ICD Code Onset Dates Problem Status W/U Status Risk Notes Problem 423809438 Colon cancer screening (Z12.11) Active confirmed Problem 882069008 Long-term use of aspirin therapy (Z79.82) Active confirmed Plan Of Treatment Future Test Test Name Order Date COLONOSCOPY 12/03/2018 Insurance Providers Payer Name Payer Address Payer Phone Subscriber Number Group Number Insured Name Patient Relationship to Insured Coverage Start Date Coverage End Date MEDICARE OF [place] [address] [place] [address] [id number] JONES SHIPLEY Self - patient is the insured [facility] [address] [address] [place] [address] [id number] JONES SHIPLEY Self - patient is the insured Medical (General) History Medical History History ICD Code hypertension coronary artery disease with history of NV and stent placement elevated cholesterol BPH Surgical History Surgery Date(Month/Year) stent placement x 4 hernia repair
[2025-01-13 09:11] VITALS: BP 106/62; PULSE 81; TEMP 36.7; O2SAT 97; BMI 29.3
--- NOTE | 2025-01-13 09:11 | MHC.OFFWIV ---
Intake Vital Signs 01/13/25 09:11 Height 5 ft 5 in Weight 176 lb BMI 29.3 BP 106/62 Blood Pressure Location Lt brachial Position Sitting Pulse 81 Pulse Source Pulse Oximeter Temp 98.1 F Temp Source Oral Pulse Oximetry (%) 97 Oxygen Delivery Method Room Air Intake Visit Reasons: EP gout on knees Intake Note: presents with bilateral knee pain and swelling for 2 weeks Patient Tobacco Use Status: Former Tobacco user (1996) Allergies No Known Allergies Allergy (Verified 01/13/25 09:15) Do you need a note to return to daycare/school/sports/work: No HPI HPI Comments History of Present Illness Details History of Present Illness - The patient is an 79-year-old male presenting with bilateral knee pain due to gout. - The patient has a history of gout affecting both knees, initially diagnosed a year and a half ago. - He describes the pain as intermittent, with episodes of inflammation and warmth in the knees. - The patient has been managing the condition with schulte juice, which he reports has been effective in alleviating symptoms for the past year and a half. - He experienced a recurrence of symptoms after running out of schulte juice, prompting the current visit. - Previous uric acid testing indicated a level of 4, in the past. - He has been prescribed pain medication in the past, which he found effective. - He denies fever, chills, CP, SOB, edema, or calf pain. She denies numbness or tingling. Physical Exam General: Cooperative, healthy appearing, comfortable, no acute distress and well developed Respiratory: Normal respiratory effort and able to speak in complete sentences. Clear to auscultation bilaterally Cardiovascular: Regular rate and rhythm. Normal S1 and S2 Skin: No rashes or lesions noted. No erythema noted. No warmth noted. Musculoskeletal: No swelling or deformity noted of the knee. FROM of the knee. No click noted. No TTP of the patella, medial or lateral condyle, medial or lateral meniscus, or posterior fossa. Negative anterior drawer test. Negative Ros noted. DTR are 1+ on the LE. Negative Homans noted. FROM of the ankle. Ambulates with a steady gait. Strength is 5/5 on the LE bilaterally. Neuro: Sensation is intact on the LE bilaterally. [facility] Medical History (Updated 07/01/24 @ 10:43 by Gómez Childers MD) Macular degeneration, wet Obesity (BMI 30-39.9) Benign essential hypertension Benign prostatic hyperplasia Impaired fasting glucose Pure hypercholesterolemia Coronary artery disease Surgical History Presence of bare metal stent in right coronary artery S/P transurethral resection of prostate History of inguinal hernia repair Family History Father CVD (cardiovascular disease) Myocardial infarction Mother Myocardial infarction Sister Myocardial infarction Sister Cancer Social History Housing: House Alcohol intake: current Alcohol intake frequency: 0-2 drinks per day Patient Tobacco Use Status: Former Tobacco user (1996) e-Cigarette/Vaping Use: Never Used Second Hand Smoke Exposure: No service: No Current occupational status: retired Cognitive needs: No Hearing needs: Yes (hearing aide) Vision needs: Yes (glasse) Review of Systems Const All systems reviewed & are unremarkable except as noted in HPI and below Physical Exam Vital Signs: Last Vital Signs Temp 98.1 F 01/13/25 09:11 Pulse 81 01/13/25 09:11 BP 106/62 01/13/25 09:11 Pulse Ox 97 01/13/25 09:11 Oxygen Delivery Method Room Air 01/13/25 09:11 BMI result Body Mass Index 29.3 Assessment & Plan Assessment & Plan (1) Gout: Code(s): M10.9 - Gout, unspecified Qualifiers: Gout site: knee Gout etiology: unspecified cause Chronicity: acute Laterality: unspecified laterality Qualified Code(s): M10.9 - Gout, unspecified Plan Most likely gout vs arthritis plan - rest and elevate the legs - Indomethacin BID for pain - prednisone burst for 5 days - advised him to avoid red meat, beans, shellfish, or foods high in purines - follow up with PCP Medications: New indomethacin administer with food or milk 50 mg PO bid 14 caps 0RF 7 days prednisone 50 mg PO QAM 5 tabs 0RF Coding Level of Care Code Est Pt Level 3 (49289) Diagnoses Acute gout of knee, unspecified cause, unspecified laterality M10.9 Gout site: knee Gout etiology: unspecified cause Chronicity: acute Laterality: unspecified laterality
== END 2025-01-13 10:20 | disposition home or self-care (01) ==
PROVIDERS: PCP Internal Medicine; Visit Provider Physician Assistant Medical
DX: M10.9 Gout, unspecified (principal)

== ENCOUNTER → 2025-01-13 08:54 | Outpatient (BNVA) | payer MEDICARE, OTHER, SELFPAY | PROVIDERS: PCP Internal Medicine; Visit Provider Physician Assistant Medical | DX: M10.9 Gout, unspecified (principal) | CPT/HCPCS: 99212 ==

== ENCOUNTER 2025-03-03 14:13 | Outpatient (AMB) | payer MEDICARE, OTHER, SELFPAY ==
--- OUTSIDE RECORDS SUMMARY | 2023-12-12 05:40 | XMS_ITS ---
Author Organization [employer] [place] Address [address] [place], [place] [id number] Care Team Providers Care Program Project Manager Name Role Phone FAISAL BAXTER Primary Care Provider [phone] REASON FOR VISIT 2 MONTH F/U Encounters Encounter Location Date Provider Diagnosis [facility] [address] [place], [place] [id number] 12/12/2023 FAISAL BAXTER Plan Of Treatment Next Appt Details Provider Name:FAISAL BAXTER, 07/28/2025 10:20:00 AM, [address], [place], [place], [phone], Progress Notes * SHIPLEYJONES EVANS EDOB:1945 (79 yo M)Acc No.[id number]:12/12/2023 Progress Notes Patient: Justine WATTSNATHAN JONES Janice Provider: Juliana Batxer MD :1945 A ge:78 Y S ex:Male Date:12/12/2023 Address:[address] [place] [address] [address], [id number] Subjective: * Chief Complaints: * 1 . [...] Electronic signature of EMMETT BAXTER MD on 03/03/2025 at 03:11 PM EDT Sign off status: Pending * Provider: Juliana Baxter MD Date: 0 12/12/2023 Generated for Sloan barbosa/Oc/Monicaitting on: 0 03/03/2025 03:11 PM EDT
[2025-03-03 14:17] VITALS: BP 138/70; PULSE 68; O2SAT 98; BMI 30.3
--- NOTE | 2025-03-03 14:17 | A.OFFPC_ITS ---
Vital Signs 03/03/25 14:17 Height 5 ft 5 in Weight 182 lb BMI 30.3 BP 138/70 Blood Pressure Location Lt brachial Position Sitting Pulse 68 Pulse Oximetry (%) 98 Oxygen Delivery Method Room Air Intake Visit Reasons: Reschedule cad,htn,hyperlipidemia,ifg Allergies No Known Allergies Allergy (Verified 03/03/25 14:26) Medication List - Last Reconciled 03/03/25 by Gómez Childers MD amlodipine 2.5 mg PO DAILY aspirin 81 mg PO DAILY atenolol 50 mg PO DAILY atorvastatin 40 mg PO BEDTIME 90 days coenzyme Q10 300 mg PO DAILY docusate sodium 100 mg PO DAILY PRN ezetimibe (Zetia) 10 mg PO DAILY 90 days finasteride 5 mg PO DAILY 90 days indomethacin 50 mg PO bid 7 days meloxicam 15 mg PO DAILY metronidazole 0.75% appl topical nitroglycerin 0.4 mg sublingual Q5M PRN prednisone 50 mg PO QAM Tobacco use date assessed: 03/03/25 Fall risk assessment: No Falls in past year Last assessed Fall Risk: 03/03/25 Dental Screening Dental Screen Date: 03/03/25 Did you have a dental visit in the last 12 months?: No Did you have a dental problem in the last 6 months where you did not have access to dental care?: No Was dental information given to patient?: No HPI Reschedule cad,htn,hyperlipidemia,ifg HPI Details Patient comes in today for his follow up visit States that he feels okay except for his issues with ED, which he feels is getting worse States that he has never taken any Rx for his ED in the past but has a friend who was prescribed some Viagra and had problems/side effects that he thinks are due to his Rx He denies any headaches or dizziness Denies any chest pains, no increased SOB No nausea/vomiting, no abdominal pain No change in bowel habits noted Also needs his Nitroglycerine tablets Rx refilled - states that he has never really needed to take his sublingual nitroglycerine but he needs a new Rx as his old one has He was not able to get his follow up labs done prior to his appointment today - states that his original appointment in December 2024 was cancelled and he was rescheduled to today so he did not get his labs that he was supposed to get done back in December 2024 completed for today [facility] Medical History Macular degeneration, wet Obesity (BMI 30-39.9) Benign essential hypertension Benign prostatic hyperplasia Impaired fasting glucose Pure hypercholesterolemia Coronary artery disease Surgical History Presence of bare metal stent in right coronary artery S/P transurethral resection of prostate History of inguinal hernia repair Family History Father CVD (cardiovascular disease) Myocardial infarction Mother Myocardial infarction Sister Myocardial infarction Sister Cancer Social History Housing: House Alcohol intake: current Alcohol intake frequency: 0-2 drinks per day Patient Tobacco Use Status: Former Tobacco user (1996) e-Cigarette/Vaping Use: Never Used Second Hand Smoke Exposure: No service: No Current occupational status: retired Cognitive needs: No Hearing needs: Yes (hearing aide) Vision needs: Yes (glasse) Questionnaire PHQ-9 Over the last 2 weeks, how often have you been bothered by any of the following problems? 1. Little interest or pleasure in doing things: not at all 2. Feeling down, depressed, or hopeless: not at all 3. Trouble falling or staying asleep, or sleeping too much: not at all 4. Feeling tired or having little energy: not at all 5. Poor appetite or overeating: not at all 6. Feeling bad about yourself - or that you are a failure or have let yourself or your family down: not at all 7. Trouble concentrating on things, such as reading the newspaper or watching television: not at all 8. Moving or speaking so slowly that other people could have noticed. Or the opposite - being so fidgety or restless that you have been moving around a lot more than usual: not at all 9. Thoughts that you would be better off or of hurting yourself in some way: not at all Total score: 0 Depression Screening Interpretation: Negative Depression Screening Done: Yes 00511 - PHQ-9 Billing: Yes Source: Developed by Drs. Marek Cao, Kevin Nash and colleagues, with an educational julia from [employer]. Thrive Questionnaire Date Thrive assessed: 03/03/25 I am a: Patient What is your living situation today?: I have a steady place to live Within the past 12 months, did the food you bought not last and you didn't have the money to get more?: Never true Within the past 12 months, did you worry whether your food would run out before you got money to buy more?: Never true Do you have trouble paying for medicines?: No Do you have trouble getting transportation to medical appointments?: No Do you have trouble paying your heating and electricity bill?: No Do you have trouble taking care of your child, family member or friend?: No Do you have trouble with day-to-day activities such as bathing, preparing meals, shopping, managing finances, etc.?: No Are you currently unemployed and looking for a job?: No Are you interested in more education?: Yes Please select the resources that you would like help with: None Currently or been in a relationship where the following occur: No concerns reported THRIVE Score: 0 AUDIT C Alcohol Use Questionnaire (AUDIT-C) 1. How often do you have a drink containing alcohol?: 4 or more times a week 2. How many drinks containing alcohol do you have on a typical day when you are drinking?: 1 or 2 3. How often do you have six or more drinks on one occasion?: Never Total Score: 4 Score Reviewed/Action Taken: Yes SHERRIE-7 AMB Questionnaire SHERRIE-7 Date SHERRIE - 7 assessed: 02/18/24 Feeling nervous, anxious, or on edge: 0 = Not at all Not being able to stop or control worryin = Not at all Worrying too much about different things: 0 = Not at all Trouble relaxin = Not at all Being so restless that it is hard to sit still: 0 = Not at all Becoming easily annoyed or irritable: 0 = Not at all Feeling afraid as if something awful might happen: 0 = Not at all Total SHERRIE-7 score (0-4 normal; 5-9 mild; 10-14 moderate; 15-21 severe): 0 Source: Developed by Drs. Marek Cao, Kevin Nash and colleagues, with an educational julia from [employer]. Review of Systems Const Denies chills, Denies fatigue, Denies fever(s) and Denies headache(s) ENT Denies dysphagia, Denies dizziness, Denies otalgia, Denies headache(s), Denies neck pain, Denies odynophagia and Denies sore throat Card Denies chest pain, Denies palpitations and Denies dyspnea Resp Denies chest congestion, Denies cough, Denies dyspnea and Denies wheezing GI Denies abdominal pain, Denies constipation, Denies dysphagia, Denies heartburn, Denies diarrhea, Denies nausea, Denies odynophagia and Denies vomiting Denies difficulty urinating, Reports erectile dysfunction (getting worse), Denies dysuria, Denies nocturia and Denies urinary frequency Musc Denies back pain and Denies neck pain Skin/Breast Denies rash Neuro Denies dizziness and Denies headache(s) Endo Denies fatigue and Denies palpitations Aller/Immun Denies wheezing Physical exam (Primary Care) Vital Signs: Last Vital Signs Pulse 68 03/03/25 14:17 BP 138/70 03/03/25 14:17 Pulse Ox 98 03/03/25 14:17 Oxygen Delivery Method Room Air 03/03/25 14:17 BMI result Body Mass Index 30.3 Tobacco/Smoking Status: Tobacco use Status Tobacco use date assessed 03/03/25 03/03/25 14:21 Patient Tobacco Use Status Former Tobacco user (1996) 03/03/25 14:21 e-Cigarette/Vaping Use Never Used 03/03/25 14:21 PHQ-9: PHQ-9 Score PHQ-9: Total score 0 03/03/25 14:21 Depression Screening Interpretation: Negative Thrive Assessment: Date of Thrive Assessment Date Thrive assessed 02/18/24 03/03/25 14:21 Currently or been in a relationship where the following occur: No concerns reported Const General: no acute distress and alert HENMT Ears: TM's normal bilaterally and EAC's normal Throat: Yes posterior oropharynx normal and Yes tonsils normal (no TP congestion) Neck Neck: Yes supple and No lymphadenopathy Thyroid: Thyroid normal Resp Auscultation: clear to auscultation bilaterally, no rales and no wheezes Cardio Rate: regular rate Rhythm: regular rhythm Heart sounds: no murmurs GI Palpation (GI): Soft to palpation and nontender Auscultation: normal bowel sounds General: Yes no CVA tenderness Back/Spine/Pelvis Back: no CVA tenderness Thoracic/Lumbar Spine: No lumbar spinal tenderness Skin Rashes: no rashes Extrem General: Yes no clubbing, cyanosis or edema Coding Level of Care Code Est Pt Level 4 (46493) Diagnoses Coronary artery disease involving [place] coronary artery of [place] heart without angina pectoris I25.10 Coronary Disease-Associated Artery/Lesion type: [place] artery [place] vs. transplanted heart: [place] heart Associated angina: without angina Pure hypercholesterolemia E78.00 Benign essential hypertension I10 Impaired fasting glucose R73.01 Arthralgia, unspecified joint M25.50 Joint pain location: unspecified Benign prostatic hyperplasia, unspecified whether lower urinary tract symptoms present N40.0 Lower urinary tract symptom presence: unspecified whether lower urinary tract symptoms present Exudative age-related macular degeneration, unspecified laterality, unspecified stage H35.3290 Exudative macular degeneration stage: unspecified stage Eye laterality: unspecified Erectile dysfunction, unspecified erectile dysfunction type N52.9 Erectile dysfunction type: unspecified Obesity (BMI 30-39.9) E66.9 Additional Codes PHQ-9 - 79120 - PHQ-9 Billing: Yes ([id number]) Assessment & Plan Assessment & Plan (1) Coronary artery disease: Comment: S/P bare metal stenting of the LAD, Cx and right coronary artery (RCA) on 08/09/1997 Code(s): I25.10 - Atherosclerotic heart disease of [place] coronary artery without angina pectoris Category: Medical Qualifiers: Coronary Disease-Associated Artery/Lesion type: [place] artery [place] vs. transplanted heart: [place] heart Associated angina: without angina Qualified Code(s): I25.10 - Atherosclerotic heart disease of [place] coronary artery without angina pectoris Plan: Patient remains asymptomatic from a cardiac standpoint Continue Aspirin 81 mg QD (needs lifelong antiplatelet Tx due to Hx of PCI) and Atenolol 50 mg QD Follow up with cardiology (Dr. Graham) as scheduled (2) Pure hypercholesterolemia: Code(s): E78.00 - Pure hypercholesterolemia, unspecified Category: Medical Plan: Patient was not able to get his follow up labs done prior to his appointment today Reinforced low cholesterol diet Continue Atorvastatin 40 mg QD Will recheck his labs and fasting lipids in 4 months for follow up - will just have patient use his current lab orders (updated) for his next blood draw in early June 2025 (3) Benign essential hypertension: Code(s): I10 - Essential (primary) hypertension Category: Medical Plan: Reinforced low sodium diet - goal is systolic BP of at least 130 mm or less Continue Atenolol 50 mg QD and Amlodipine 2.5 mg QD (4) Impaired fasting glucose: Code(s): R73.01 - Impaired fasting glucose Category: Medical Plan: His HgbA1c was normal at 5.8% when it was last checked in June 2024 (was previously at 5.6% earlier last year); his FBS was at 101 mg/dl on his previous labs Reinforced low calorie diet/exercise as tolerated (5) Joint pain: Code(s): M25.50 - Pain in unspecified joint Category: Medical Qualifiers: Joint pain location: unspecified Qualified Code(s): M25.50 - Pain in unspecified joint Plan: Have advised patient that his serum uric acid level on his labs done last time was still elevated at 7.7 (was at 8.0 previously) States that his previous joint pains and swelling (involving his toe, right knee) have all resolved with Meloxicam that he was prescribed from the walk-in clinic some time ago last year Patient states that he has since been drinking some schulte juice everyday (recommended by his sister) and he has NOT had any further flare ups since Reinforced low purine diet Will recheck his serum uric acid level in a few months for follow up (6) Benign prostatic hyperplasia: Code(s): N40.0 - Benign prostatic hyperplasia without lower urinary tract symptoms Category: Medical Qualifiers: Lower urinary tract symptom presence: unspecified whether lower urinary tract symptoms present Qualified Code(s): N40.0 - Benign prostatic hyperplasia without lower urinary tract symptoms Plan: S/P TURP in 2008 His PSA was still significantly elevated on his labs done last year Pelvic MRI done (as an alternative by urology) in May 2021 showed (+) signal abnormality that is equivocal for prostate cancer He has declined further biopsies and work ups with urology Continue Finasteride 5 mg QD Follow up with urology (Dr. Murphy) as scheduled (7) Macular degeneration, wet: Code(s): H35.3290 - Exudative age-related macular degeneration, unspecified eye, stage unspecified Category: Medical Qualifiers: Exudative macular degeneration stage: unspecified stage Eye laterality: unspecified Qualified Code(s): H35.3290 - Exudative age-related macular degeneration, unspecified eye, stage unspecified Plan: Follow up with ophthalmology as scheduled (8) Erectile dysfunction: Code(s): N52.9 - Male erectile dysfunction, unspecified Category: Medical Qualifiers: Erectile dysfunction type: unspecified Qualified Code(s): N52.9 - Male erectile dysfunction, unspecified Plan: Will start him on a trial of Sildenafil 50 mg PRN Will also check his serum testosterone level in a few months for follow up (9) Obesity (BMI 30-39.9): Code(s): E66.9 - Obesity, unspecified Category: Medical Plan: Reinforced diet/exercise as tolerated/lose weight Plan Follow up in 4 months (mid-June 2025) Orders: Orders PSA,Total (Free>4and<10) 06/19/25 N40.0 - Benign prostatic hyperplasia without lower urinary tract symptoms Testosterone, Free/Total 06/19/25 N52.9 - Male erectile dysfunction, unspecified, R79.89 - Other specified abnormal findings of blood chemistry Medications: New nitroglycerin do not exceed 3 doses per episode 0.4 mg sublingual Q5M PRN 30 tabs 5RF chest pain sildenafil (Viagra) administer 30 minutes to 4 hours before activity 50 mg PO DAILY PRN 30 tabs 1RF sexual activity
--- OUTSIDE RECORDS SUMMARY | 2025-03-03 15:11 | XMS_ITS | Patient Health Record ---
Author Organization [facility] Address [address] [place] [id number] Care Team Providers Care Cleaning Custodian Name Role Phone Alvarado HUIZAR, [place] Primary Care Provider Marbin Cope Jr Unavailable [...] Problem Status W/U Status Risk Notes Problem [id number] Colon cancer screening (Z12.11) Active confirmed Problem [id number] Long-term use of aspirin therapy (Z79.82) Active confirmed Plan Of Treatment Future Test Test Name Order Date COLONOSCOPY 12/03/2018 Insurance Providers Payer Name Payer Address Payer Phone Subscriber Number Group Number Insured Name Patient Relationship to Insured Coverage Start Date Coverage End Date [place]ARE [place] [address] [place] [address] [phone] [id number] JONES SHIPLEY Self - patient is the insured [facility] [address] [address] [place] [address] [id number] JONES SHIPLEY Self - patient is the insured Medical (General) History Medical History History ICD Code hypertension coronary artery disease with history of NE and stent placement elevated cholesterol BPH Surgical History Surgery Date(Month/Year) stent placement x 4 hernia repair
== END 2025-03-03 14:46 | disposition home or self-care (01) ==
LOC: HO.HMCH 14:13
PROVIDERS: PCP Internal Medicine; Visit Provider Internal Medicine
DX: I25.10 Atherosclerotic heart disease of native coronary artery without angina pectoris (principal); H35.3290 Exudative age-related macular degeneration, unspecified eye, stage unspecified; E66.9 Obesity, unspecified; Z68.30 Body mass index [BMI] 30.0-30.9, adult; E78.00 Pure hypercholesterolemia, unspecified; I10 Essential (primary) hypertension; R73.01 Impaired fasting glucose; M25.50 Pain in unspecified joint; N40.0 Benign prostatic hyperplasia without lower urinary tract symptoms; N52.9 Male erectile dysfunction, unspecified

== ENCOUNTER → 2025-03-03 14:13 | Outpatient (BNVA) | payer MEDICARE, OTHER, SELFPAY | PROVIDERS: PCP Internal Medicine; Visit Provider Internal Medicine | DX: I25.10 Atherosclerotic heart disease of native coronary artery without angina pectoris (principal); E78.00 Pure hypercholesterolemia, unspecified; I10 Essential (primary) hypertension; R73.01 Impaired fasting glucose; M25.50 Pain in unspecified joint; N40.0 Benign prostatic hyperplasia without lower urinary tract symptoms; N52.9 Male erectile dysfunction, unspecified; E66.9 Obesity, unspecified; Z68.30 Body mass index [BMI] 30.0-30.9, adult; Z87.891 Personal history of nicotine dependence; Z71.3 Dietary counseling and surveillance | CPT/HCPCS: 96127; 99212 ==